=== PATIENT | male | born 1935 | race Hispanic/Latino ===

== ENCOUNTER 2016-07-26 05:11 | Inpatient (IN) | payer MEDICARE ==
--- NOTE | 2016-07-26 05:23 | Emergency Department Report ---
<ATIF PARSON - Last Filed: 07/26/16 05:18> ED Shortness of Breath HPI - General Chief Complaint: Dyspnea/Respdistress Stated Complaint: DIFFICULTY BREATHING Time Seen by Provider: 07/26/16 05:16 Source: patient, EMS Mode of arrival: Stretcher Limitations: No Limitations - History of Present Illness Initial Comments: 81-year-old male presents to the emergency department via EMS complaining of difficulty breathing. Symptoms began yesterday. He states symptoms upper esophagus and worse throughout the night. Patient denies pain. Patient also reports new onset swelling in his feet. Patient was recently admitted to the hospital for pneumonia. There are no other complaints. Patient was placed on NIPPV by EMS prior to arrival. Patient was also given 5 mg of albuterol and 40 mg of IV Lasix. MD Complaint: shortness of breath -: Gradual, days(s) (1) Severity: moderate Consistency: constant Improves With: oxygen, upright position Worsens With: lying flat Known History Of: COPD, congestive heart failure, recurrent pnemonia Associated Symptoms: other (pedal edema) Treatments Prior to Arrival: oxygen, NIPPV, diuretics - Related Data Home Medications Medication Instructions Recorded Confirmed Last Taken Cyanocobalamin [Vitamin B-12] 1,000 mcg IM QMONTH 04/05/15 07/26/16 07/25/16 Furosemide [Lasix TAB] 40 mg PO QDAY 04/05/15 07/26/16 07/25/16 Ipratropium (Nf) [Atrovent HFA 2 puff IH Q6HR PRN 04/05/15 07/26/16 07/25/16 17MCG/PUFF] Levothyroxine [Synthroid] 88 mcg PO QAM 04/05/15 07/26/16 07/25/16 Nitroglycerin [Nitrostat] 0.4 mg SL Q5M PRN 04/05/15 07/26/16 07/25/16 Potassium Chloride [K-Dur] 10 meq PO QDAY 04/05/15 07/26/16 07/25/16 Vitamin E 1,000 unit PO DAILY 04/05/15 07/26/16 07/25/16 Tamsulosin [Flomax] 1 mg PO DAILY 07/03/16 07/26/16 07/25/16 Previous Rx's Medication Instructions Recorded Last Taken Type ALBUTEROL NEB's [Proventil 0.083% 2.5 mg IH Q4H PRN 30 Days 07/15/16 07/25/16 Rx NEBS] Apixaban [Eliquis] 5 mg PO Q12HR #60 tablet 07/15/16 07/25/16 Rx Aspirin EC [Aspirin Enteric Coated 81 mg PO QDAY #30 tablet 07/15/16 07/25/16 Rx TAB] Atenolol [Tenormin] 25 mg PO QDAY #30 tablet 07/15/16 07/25/16 Rx AtorvaSTATin [Lipitor] 40 mg PO QHS #30 tablet 07/15/16 07/25/16 Rx Budesoni/Formotero 160-4.5(Nf) 1 puff IH BID 30 Days 07/15/16 07/25/16 Rx [Symbicort 160-4.5 (Nf)] Ipratropium/Albuterol Sulfate 1 ampul IH Q6HRT 30 Days 07/15/16 07/25/16 Rx [Duoneb 0.5 mg-3 mg/3 ml Soln] Levofloxacin [Levaquin TAB] 500 mg PO Q24HR #5 tablet 07/15/16 07/25/16 Rx Lisinopril [Zestril TAB] 2.5 mg PO QDAY #30 tablet 07/15/16 07/25/16 Rx guaiFENesin ER [Mucinex ER] 600 mg PO BID #20 tablet 07/15/16 07/25/16 Rx predniSONE [Deltasone] 10 mg PO .TAPER #48 tab 07/15/16 07/25/16 Rx Allergies Allergy/AdvReac Type Severity Reaction Status Date / Time carvedilol [From Coreg] Allergy Unknown Verified 07/03/16 11:12 ED Review of Systems ROS: Stated complaint: DIFFICULTY BREATHING Other details as noted in HPI Comment: All other systems reviewed and negative Respiratory: shortness of breath Cardiovascular: edema ED Past Medical Hx - Past Medical History Previous Medical History?: Yes Hx Hypertension: Yes Hx Heart Attack/AMI: Yes (x4) Hx Congestive Heart Failure: Yes Hx Arthritis: Yes Hx Kidney Stones: Yes Hx Asthma: Yes Hx COPD: Yes - Surgical History Past Surgical History?: Yes Hx Open Heart Surgery: Yes Hx Pacemaker: Yes (AIDC) - Family History Family history: no significant - Social History Smoking Status: Former Smoker Substance Use Type: None - Medications Home Medications: Home Medications Medication Instructions Recorded Confirmed Last Taken Type Cyanocobalamin [Vitamin B-12] 1,000 mcg IM QMONTH 04/05/15 07/26/16 07/25/16 History Furosemide [Lasix TAB] 40 mg PO QDAY 04/05/15 07/26/16 07/25/16 History Ipratropium (Nf) [Atrovent HFA 2 puff IH Q6HR PRN 04/05/15 07/26/16 07/25/16 History 17MCG/PUFF] Levothyroxine [Synthroid] 88 mcg PO QAM 04/05/15 07/26/16 07/25/16 History Nitroglycerin [Nitrostat] 0.4 mg SL Q5M PRN 04/05/15 07/26/16 07/25/16 History Potassium Chloride [K-Dur] 10 meq PO QDAY 04/05/15 07/26/16 07/25/16 History Vitamin E 1,000 unit PO DAILY 04/05/15 07/26/16 07/25/16 History Tamsulosin [Flomax] 1 mg PO DAILY 07/03/16 07/26/16 07/25/16 History ALBUTEROL NEB's [Proventil 0.083% 2.5 mg IH Q4H PRN 30 Days 07/15/16 07/26/16 Rx NEBS] Apixaban [Eliquis] 5 mg PO Q12HR #60 tablet 07/15/16 07/26/16 07/25/16 Rx Aspirin EC [Aspirin Enteric Coated 81 mg PO QDAY #30 tablet 07/15/16 07/26/16 Rx TAB] Atenolol [Tenormin] 25 mg PO QDAY #30 tablet 07/15/16 07/26/16 07/25/16 Rx AtorvaSTATin [Lipitor] 40 mg PO QHS #30 tablet 07/15/16 07/26/16 07/25/16 Rx Budesoni/Formotero 160-4.5(Nf) 1 puff IH BID 30 Days 07/15/16 07/26/16 07/25/16 Rx [Symbicort 160-4.5 (Nf)] Ipratropium/Albuterol Sulfate 1 ampul IH Q6HRT 30 Days 07/15/16 07/26/16 Rx [Duoneb 0.5 mg-3 mg/3 ml Soln] Levofloxacin [Levaquin TAB] 500 mg PO Q24HR #5 tablet 07/15/16 07/26/16 Rx Lisinopril [Zestril TAB] 2.5 mg PO QDAY #30 tablet 07/15/16 07/26/16 07/25/16 Rx guaiFENesin ER [Mucinex ER] 600 mg PO BID #20 tablet 07/15/16 07/26/16 07/25/16 Rx predniSONE [Deltasone] 10 mg PO .TAPER #48 tab 07/15/16 07/26/16 07/25/16 Rx ED Physical Exam - General Limitations: Physical Limitation General appearance: alert, in distress (mild respiratory distress) - Head Head exam: Present: atraumatic, normocephalic - Eye Eye exam: Present: normal appearance, PERRL, EOMI - ENT ENT exam: Present: normal exam, normal orophraynx, mucous membranes moist - Neck Neck exam: Present: normal inspection, full ROM. Absent: tenderness - Respiratory Respiratory exam: Present: respiratory distress (mild tachypnea), rales ( bilateral posterior bases) - Cardiovascular Cardiovascular Exam: Present: normal rhythm, tachycardia, normal heart sounds - GI/Abdominal GI/Abdominal exam: Present: soft, normal bowel sounds. Absent: distended, tenderness - Extremities Exam Extremities exam: Present: normal inspection, full ROM, pedal edema - Back Exam Back exam: Present: normal inspection, full ROM. Absent: tenderness - Neurological Exam Neurological exam: Present: alert, oriented X3. Absent: motor sensory deficit - Skin Skin exam: Present: warm, dry, intact ED Course Vital Signs 07/26/16 07/26/16 07/26/16 05:12 05:25 05:33 Temperature 97.6 F Pulse Rate 110 H Pulse Rate [ Bilateral Throughout] Respiratory 33 H 34 H 20 Rate Respiratory Rate [Bilateral Throughout] Blood Pressure 124/72 Blood Pressure 124/72 [Right] O2 Sat by Pulse 94 92 96 Oximetry 07/26/16 07/26/16 07/26/16 05:36 05:37 06:01 Temperature Pulse Rate 83 108 H 76 Pulse Rate [ Bilateral Throughout] Respiratory 22 14 Rate Respiratory Rate [Bilateral Throughout] Blood Pressure 113/71 104/53 Blood Pressure [Right] O2 Sat by Pulse 98 97 Oximetry 07/26/16 07/26/16 07/26/16 06:42 06:45 07:00 Temperature Pulse Rate 80 85 Pulse Rate [ 80 Bilateral Throughout] Respiratory 20 20 Rate Respiratory 20 Rate [Bilateral Throughout] Blood Pressure 103/60 105/69 Blood Pressure [Right] O2 Sat by Pulse 100 98 Oximetry 07/26/16 08:00 Temperature Pulse Rate 78 Pulse Rate [ Bilateral Throughout] Respiratory 26 H Rate Respiratory Rate [Bilateral Throughout] Blood Pressure 99/66 Blood Pressure [Right] O2 Sat by Pulse 99 Oximetry ED Medical Decision Making - EKG Data -: EKG Interpreted by Me EKG shows normal: sinus rhythm, ST-T waves Rate: tachycardia - EKG Data When compared to previous EKG there are: no significant change Interpretation: unchanged when compared t (07/05/2016), other (sinus tachycardia , left axis deviation, right bundle branch block) - Differential Diagnosis CHF, pneumonia, COPD exacerbation Critical care attestation.: If time is entered above; I have spent that time in minutes in the direct care of this critically ill patient, excluding procedure time. ED Disposition Clinical Impression: COPD exacerbation CHF (congestive heart failure) Qualifiers: Congestive heart failure type: combined Congestive heart failure chronicity: acute on chronic Qualified Code(s): I50.43 - Acute on chronic combined systolic (congestive) and diastolic (congestive) heart failure Pneumonia Qualifiers: Pneumonia type: due to unspecified organism Laterality: bilateral Lung location : lower lobe of lung Qualified Code(s): J18.9 - Pneumonia, unspecified organism Hypercapnic respiratory failure Qualifiers: Chronicity: acute on chronic Qualified Code(s): J96.22 - Acute and chronic respiratory failure with hypercapnia Disposition: OP ADMITTED IP TO THIS HOSP Condition: Stable Instructions: Chronic Obstructive Pulmonary Disease (ED), Bacterial Pneumonia ( ED) <DREW JUAREZ - Last Filed: 07/26/16 09:19> ED Shortness of Breath HPI - History of Present Illness Initial Comments: The patient is on continuous home O2 but not CPAP. Reports improvement from therapy thus far. Discharge instructions indicate that he was treated for bronchitis. His previous x-ray reports are consistent with pneumonia. He was treated with high-dose steroids in the ICU. On discharge she declined rehabilitation placement. He reports to me no recent fever or chills. However , his x-ray does appear to show worsening lower lobe infiltrates. MD Complaint: shortness of breath -: days(s) Severity: moderate, severe Quality: throbbing Known History Of: COPD, congestive heart failure (temperature was not measured at home) ED Review of Systems Comment: All other systems reviewed and negative ED Past Medical Hx - Past Medical History Hx COPD: Yes Additional medical history: AICD. EF of 15. - Social History Substance Use Type: None ED Physical Exam - General Limitations: Other (noninvasive ventilation) General appearance: alert, in no apparent distress - Head Head exam: Present: atraumatic, normocephalic - Eye Eye exam: Present: normal appearance. Absent: scleral icterus - ENT ENT exam: Present: mucous membranes moist - Neck Neck exam: Present: normal inspection - Respiratory Respiratory exam: Present: wheezes. Absent: respiratory distress, accessory muscle use - Cardiovascular Cardiovascular Exam: Present: regular rate, normal rhythm. Absent: systolic murmur, diastolic murmur, rubs, gallop - GI/Abdominal GI/Abdominal exam: Present: soft, normal bowel sounds. Absent: distended, tenderness, guarding, rebound - Rectal Rectal exam: Present: deferred - Extremities Exam Extremities exam: Present: pedal edema (mild) - Back Exam Back exam: Present: normal inspection - Neurological Exam Neurological exam: Present: alert, oriented X3, CN II-XII intact. Absent: motor sensory deficit - Psychiatric Psychiatric exam: Present: normal affect, normal mood - Skin Skin exam: Present: warm, dry, intact, normal color. Absent: rash ED Course - Reevaluation(s) Reevaluation #1: I am going to add antibiotics steroids and 2 additional meds. The goal is to take the patient off BiPAP. We'll see if his ABG is permissive or not. 07/26/16 06:36 Reevaluation #2: This patient has been admitted by Dr. Zhu. The nurse placed the patient on 2 L. I noted that the respiratory therapist obtained a venous blood gas that was consistent with hypercapnic respiratory failure. I instructed the respiratory therapist to repeat the blood gas to verify that the patient is okay with out IPAP. 07/26/16 09:15 ED Medical Decision Making - Lab Data Result diagrams: 07/26/16 05:29 07/26/16 05:29 Laboratory Results - last 24 hr 07/26/16 07/26/16 05:29 05:29 WBC 5.8 RBC 3.37 L Hgb 10.9 L Hct 33.1 L MCV 98 H MCH 32 MCHC 33 RDW 17.0 H Plt Count 138 L Lymph % (Auto) 11.1 L Crenshaw % (Auto) 6.6 Eos % (Auto) 0.8 Baso % (Auto) 0.5 Lymph # 0.6 L Crenshaw # 0.4 Eos # 0.0 Baso # 0.0 Seg Neutrophils % 81.0 H Seg Neutrophils # 4.7 Sodium 144 Potassium 4.6 Chloride 99.8 Carbon Dioxide 32 H Anion Gap 17 BUN 26 H Creatinine 1.0 Estimated GFR > 60 BUN/Creatinine Ratio 26.00 Glucose 129 H Calcium 8.5 Magnesium 2.1 Total Bilirubin 0.6 AST 29 ALT 26 Alkaline Phosphatase 50 Troponin T < 0.010 NT-Pro-B Natriuret Pep 87781 H Total Protein 5.8 L Albumin 3.4 L Albumin/Globulin Ratio 1.4 - EKG Data -: EKG Interpreted by Me Rate: tachycardia (sinus tachycardia) - EKG Data When compared to previous EKG there are: no significant change Few PVCs are noted. Right bundle-branch block. Left anterior circular block. Old inferior wall zone. No evidence of acute ischemia 07/26/16 06:38 07/26/16 06:39 - Radiology Data interpreted by me: Chest x-ray shows what appears to be more infiltrate in the right lower lobe can 't exclude left pleural effusion/left lower lobe infiltrate as well Critical Care Time: Yes Critical care time in (mins) excluding proc time.: 45 ED Disposition Is pt being admited?: Yes Does the pt Need Aspirin: Yes Time of Disposition: 09:19
[2016-07-26 05:42] LABS: Basophils % (Auto) 0.5 % (0.0-1.8); Eosinophils % (Auto) 0.8 % (0.0-4.3); Hematocrit 33.1 % (35.5-45.6); Hemoglobin 10.9 gm/dl (11.8-15.2); Mean Corpuscular HGB Conc 33 % (32-34); Mean Corpuscular Hemoglobin 32 pg (28-32); Mean Corpuscular Volume 98 fl (84-94); Platelet Count 138 K/mm3 (140-440); Red Blood Count 3.37 M/mm3 (3.65-5.03); White Blood Count 5.8 K/mm3 (4.5-11.0)
[2016-07-26 06:07] LABS: Alanine Aminotransferase 26 units/L (7-56); Albumin 3.4 g/dL (3.9-5); Albumin/Globulin Ratio 1.4 %; Alkaline Phosphatase 50 units/L (35-129); Anion Gap 17 mmol/L; Bilirubin,Total 0.6 mg/dL (0.1-1.2); Blood Urea Nitrogen 26 mg/dL (9-20); Calcium 8.5 mg/dL (8.4-10.2); Carbon Dioxide 32 mmol/L (22-30); Chloride 99.8 mmol/L (98-107); Glucose 129 mg/dL (75-100); Magnesium 2.1 mg/dL (1.7-2.3); Potassium 4.6 mmol/L (3.6-5.0); Sodium 144 mmol/L (137-145); Total Protein 5.8 g/dL (6.3-8.2)
[2016-07-26] MEDS ORDERED: DUONEB 0.5 MG-3 MG/3 ML SOLN IH ONE ×2 (06:22→14:26)
[2016-07-26] MEDS ORDERED: ZOSYN/NS 3.375GM/50ML 50 ML IV ONE (06:24)
[2016-07-26] MEDS ORDERED: LEVAQUIN 750MG/150ML 150 ML IV ONE (06:24)
[2016-07-26] MEDS ORDERED: VANCOMYCIN PHARMACY TO DOSE IV SCH (07:00)
[2016-07-26] MEDS: VANCOMYCIN VIAL 1,250 MG in NACL 0.9% 250ML 250 ML IV SCH ×2 (09:10→21:57)
[2016-07-26] MEDS ORDERED: BABY ASPIRIN PO ONE (09:19)
--- NOTE | 2016-07-26 09:48 | XRay Report ---
AP CHEST :07/26/16 05:11:00 CLINICAL: Dyspnea. COMPARISON:07/13/16 FINDINGS: Stable cardiomegaly with pacer leads in heart. Median sternotomy wires. Normal pulmonary vessels. Mild bibasal opacities are unchanged. No tubes or lines. IMPRESSION: No change. Probably chronic bibasal interstitial changes.
[2016-07-26 10:11] LABS: ISTAT Base Excess 16; ISTAT HCO3 41.4; ISTAT PCO2 68.4 (35-45); ISTAT PO2 24 (80-105); ISTAT SO2 38; ISTAT TCO2 43
--- NOTE | 2016-07-26 10:49 | Event Note ---
Date: 07/26/16 See H/p in reports
[2016-07-26] MEDS ORDERED: PROVENTIL IH PRN (11:27)
[2016-07-26] MEDS ORDERED: NON-FORMULARY (Ipratropium (Nf) 2 PUFF) IH PRN (11:27)
[2016-07-26] MEDS ORDERED: NON-FORMULARY (Budesoni/Formotero 160-4.5(Nf) 1 PUFF) IH SCH (11:30)
[2016-07-26] MEDS ORDERED: ZOFRAN IV PRN (11:53)
[2016-07-26] MEDS ORDERED: TYLENOL PO PRN (11:53)
[2016-07-26] MEDS ORDERED: DILAUDID IV PRN (11:53)
[2016-07-26] MEDS ORDERED: DULCOLAX PR PRN (11:53)
[2016-07-26] MEDS ORDERED: MILK OF MAGNESIA PO PRN (11:53)
[2016-07-26] MEDS ORDERED: LOVENOX SUB-Q SCH (12:00)
[2016-07-26] MEDS ORDERED: DELTASONE PO SCH (12:00)
[2016-07-26] MEDS ORDERED: PERCOCET 5/325 PO PRN (12:02)
[2016-07-26] MEDS ORDERED: DUONEB 0.5 MG-3 MG/3 ML SOLN IH PRN (12:02)
--- NOTE | 2016-07-26 12:53 | Consultation ---
History of Present Illness Consult date: 07/26/16 Consult reason: shortness of breath History of present illness: 81 year old male presenting with shortness of breath patient is a poor historian denies any chest pain palpitations.Patient was recently at length the [facility] for similar symptoms. Past History Past Medical History: COPD, hypertension, hypothyroidism Past Surgical History: No surgical history Social history: , smoking Family history: no significant family history Medications and Allergies Allergies Allergy/AdvReac Type Severity Reaction Status Date / Time carvedilol [From Coreg] Allergy Unknown Verified 07/03/16 11:12 Home Medications Medication Instructions Recorded Confirmed Last Taken Type Cyanocobalamin [Vitamin B-12] 1,000 mcg IM QMONTH 04/05/15 07/26/16 07/25/16 History Furosemide [Lasix TAB] 40 mg PO QDAY 04/05/15 07/26/16 07/25/16 History Ipratropium (Nf) [Atrovent HFA 2 puff IH Q6HR PRN 04/05/15 07/26/16 07/25/16 History 17MCG/PUFF] Levothyroxine [Synthroid] 88 mcg PO QAM 04/05/15 07/26/16 07/25/16 History Nitroglycerin [Nitrostat] 0.4 mg SL Q5M PRN 04/05/15 07/26/16 07/25/16 History Potassium Chloride [K-Dur] 10 meq PO QDAY 04/05/15 07/26/16 07/25/16 History Vitamin E 1,000 unit PO DAILY 04/05/15 07/26/16 07/25/16 History Tamsulosin [Flomax] 1 mg PO DAILY 07/03/16 07/26/16 07/25/16 History ALBUTEROL NEB's [Proventil 0.083% 2.5 mg IH Q4H PRN 30 Days 07/15/16 07/26/16 Rx NEBS] Apixaban [Eliquis] 5 mg PO Q12HR #60 tablet 07/15/16 07/26/16 07/25/16 Rx Aspirin EC [Aspirin Enteric Coated 81 mg PO QDAY #30 tablet 07/15/16 07/26/16 Rx TAB] Atenolol [Tenormin] 25 mg PO QDAY #30 tablet 07/15/16 07/26/16 07/25/16 Rx AtorvaSTATin [Lipitor] 40 mg PO QHS #30 tablet 07/15/16 07/26/16 07/25/16 Rx Budesoni/Formotero 160-4.5(Nf) 1 puff IH BID 30 Days 07/15/16 07/26/16 07/25/16 Rx [Symbicort 160-4.5 (Nf)] Ipratropium/Albuterol Sulfate 1 ampul IH Q6HRT 30 Days 07/15/16 07/26/16 Rx [Duoneb 0.5 mg-3 mg/3 ml Soln] Levofloxacin [Levaquin TAB] 500 mg PO Q24HR #5 tablet 07/15/16 07/26/16 Rx Lisinopril [Zestril TAB] 2.5 mg PO QDAY #30 tablet 07/15/16 07/26/16 07/25/16 Rx guaiFENesin ER [Mucinex ER] 600 mg PO BID #20 tablet 07/15/16 07/26/16 07/25/16 Rx predniSONE [Deltasone] 10 mg PO .TAPER #48 tab 07/15/16 07/26/16 07/25/16 Rx Active Meds: Active Medications Acetaminophen (Tylenol) 650 mg PO Q4H PRN PRN Reason: Pain MILD(1-3)/Fever >100.5/CAMPOS Albuterol (Proventil) 2.5 mg IH Q4H PRN PRN Reason: Shortness Of Breath Albuterol/Ipratropium (Duoneb 0.5 Mg-3 Mg/3 Ml Soln) 1 ampul IH Q6HRT BRENDA Albuterol/Ipratropium (Duoneb 0.5 Mg-3 Mg/3 Ml Soln) 1 ampul IH Q6HRT BRENDA Apixaban (Eliquis) 5 mg PO Q12HR BRENDA Arformoterol Tartrate (Brovana Nebu) 15 mcg IH Q12HRT BRENDA Aspirin (Halfprin Ec) 81 mg PO QDAY BRENDA Atenolol (Tenormin) 25 mg PO QDAY BRENDA Atorvastatin Calcium (Lipitor) 40 mg PO QHS BRENDA Bisacodyl (Dulcolax) 10 mg LA QDAY PRN PRN Reason: Constipation unrelieved by [facility] Budesonide (Pulmicort) 0.5 mg IH Q12HRT [facility] Furosemide (Lasix) 40 mg PO QDAY [facility] Guaifenesin (Mucinex Er) 600 mg PO BID [facility] Hydromorphone HCl (Dilaudid) 0.5 mg IV Q3H PRN PRN Reason: Pain , Severe (7-10) Vancomycin HCl 1,250 mg/ (Sodium Chloride) 250 mls @ 166.667 mls/hr IV Q12H [facility] Last Admin: 07/26/16 09:10 Dose: 166.667 mls/hr Levofloxacin/Dextrose (Levaquin 750mg/150ml) 150 mls @ 100 mls/hr IV Q24HR [facility] PRN Reason: Protocol Levothyroxine Sodium (Synthroid) 88 mcg PO DAILY@0600 [facility] Lisinopril (Zestril) 2.5 mg PO QDAY [facility] Magnesium Hydroxide (Milk Of Magnesia) 30 ml PO Q4H PRN PRN Reason: Constipation Methylprednisolone Sodium Succinate (Solu-Medrol) 80 mg IV Q8HR [facility] Ondansetron HCl (Zofran) 4 mg IV Q8H PRN PRN Reason: N/V unrelieved by Reglan Oxycodone/Acetaminophen (Percocet 5/325) 1 tab PO Q6H PRN PRN Reason: Pain, Moderate (4-6) Potassium Chloride (K-Dur) 10 meq PO QDAY [facility] Tamsulosin HCl (Flomax) 0.4 mg PO DAILY [facility] Vancomycin HCl (Vancomycin Pharmacy To Dose) 1 each IV PKCONSULT [facility] PRN Reason: Protocol Vitamin E (Vitamin E Cap) 1,000 unit PO QDAY [facility] Review of Systems Constitutional: weight loss, fatigue, weakness, malaise Ears, nose, mouth and throat: no deferred, no ear pain, no decreased hearing, no dental pain Cardiovascular: chest pain, shortness of breath, no palpitations, no syncope, no dyspnea on exertion Respiratory: shortness of breath, dyspnea on exertion Gastrointestinal: no abdominal pain, no nausea, no vomiting, no diarrhea Genitourinary Male: no dysuria, no hematuria, no flank pain Rectal: no pain, no incontinence, no bleeding Musculoskeletal: no neck stiffness, no neck pain, no hot joints Integumentary: no deferred, no rash, no pruritis, no redness Physical Examination Vital Signs Resp Pulse Ox 33 H 94 07/26/16 05:12 07/26/16 05:12 General appearance: no acute distress, well-nourished HEENT: Positive: PERRL, Mucus Membranes Moist Neck: Positive: neck supple, trachea midline. Negative: JVD/HJR Cardiac: Positive: S1/S2, S3, PMI, Laterally Displaced. Negative: Regular Rate Lungs: Positive: clear to auscultation, No Wheeze, Rales, Rhonchi Neuro: Positive: Grossly Intact. Negative: Motor Function Intact, No Lateralizing Findings Abdomen: Negative: Unremarkable, Active Bowel Sounds Extremities: Absent: edema Results 07/27/16 08:38 07/27/16 08:38 Assessment and Plan 1. Community-acquired lobar pneumonia 2. Chronic obstructive pulmonary disease 3. Congestive heart failure 4. Essential hypertension Plan. Obtain records from [facility] continued IV antibiotics. We will follow
[2016-07-26] MEDS ORDERED: LASIX ONE (12:54)
[2016-07-26] MEDS: LASIX PO SCH (13:50)
[2016-07-26] MEDS ORDERED: DUONEB 0.5 MG-3 MG/3 ML SOLN IH SCH (14:00)
[2016-07-26] MEDS ORDERED: K-DUR PO ONE (14:27)
[2016-07-26] MEDS: DUONEB 0.5 MG-3 MG/3 ML SOLN IH SCH ×2 (14:36→20:32)
[2016-07-26] MEDS: K-DUR PO SCH (14:36)
--- NOTE | 2016-07-26 14:47 | Consultation ---
History of Present Illness Consult date: 07/26/16 Reason for consult: dyspnea, COPD History of present illness: 81-year-old male presents to the emergency department via EMS complaining of difficulty breathing. Symptoms began yesterday. He states symptoms upper esophagus and worse throughout the night. Patient denies pain. Patient also reports new onset swelling in his feet. Patient was recently admitted to the hospital for pneumonia. There are no other complaints. Patient was placed on NIPPV by EMS prior to arrival. Patient was also given 5 mg of albuterol and 40 mg of IV Lasix.Patient has history of COPD,CHF nd recurrent pneumonia.Patient Allergic to Carvedelol. Past History Past Medical History: COPD, hypertension, hypothyroidism Medications and Allergies Allergies Allergy/AdvReac Type Severity Reaction Status Date / Time carvedilol [From Coreg] Allergy Unknown Verified 07/03/16 11:12 Home Medications Medication Instructions Recorded Confirmed Last Taken Type Cyanocobalamin [Vitamin B-12] 1,000 mcg IM QMONTH 04/05/15 07/26/16 07/25/16 History Furosemide [Lasix TAB] 40 mg PO QDAY 04/05/15 07/26/16 07/25/16 History Ipratropium (Nf) [Atrovent HFA 2 puff IH Q6HR PRN 04/05/15 07/26/16 07/25/16 History 17MCG/PUFF] Levothyroxine [Synthroid] 88 mcg PO QAM 04/05/15 07/26/16 07/25/16 History Nitroglycerin [Nitrostat] 0.4 mg SL Q5M PRN 04/05/15 07/26/16 07/25/16 History Potassium Chloride [K-Dur] 10 meq PO QDAY 04/05/15 07/26/16 07/25/16 History Vitamin E 1,000 unit PO DAILY 04/05/15 07/26/16 07/25/16 History Tamsulosin [Flomax] 1 mg PO DAILY 07/03/16 07/26/16 07/25/16 History ALBUTEROL NEB's [Proventil 0.083% 2.5 mg IH Q4H PRN 30 Days 07/15/16 07/26/16 Rx NEBS] Apixaban [Eliquis] 5 mg PO Q12HR #60 tablet 07/15/16 07/26/16 07/25/16 Rx Aspirin EC [Aspirin Enteric Coated 81 mg PO QDAY #30 tablet 07/15/16 07/26/16 Rx TAB] Atenolol [Tenormin] 25 mg PO QDAY #30 tablet 07/15/16 07/26/16 07/25/16 Rx AtorvaSTATin [Lipitor] 40 mg PO QHS #30 tablet 07/15/16 07/26/16 07/25/16 Rx Budesoni/Formotero 160-4.5(Nf) 1 puff IH BID 30 Days 07/15/16 07/26/16 07/25/16 Rx [Symbicort 160-4.5 (Nf)] Ipratropium/Albuterol Sulfate 1 ampul IH Q6HRT 30 Days 07/15/16 07/26/16 Rx [Duoneb 0.5 mg-3 mg/3 ml Soln] Levofloxacin [Levaquin TAB] 500 mg PO Q24HR #5 tablet 07/15/16 07/26/16 Rx Lisinopril [Zestril TAB] 2.5 mg PO QDAY #30 tablet 07/15/16 07/26/16 07/25/16 Rx guaiFENesin ER [Mucinex ER] 600 mg PO BID #20 tablet 07/15/16 07/26/16 07/25/16 Rx predniSONE [Deltasone] 10 mg PO .TAPER #48 tab 07/15/16 07/26/16 07/25/16 Rx Active Meds: Active Medications Acetaminophen (Tylenol) 650 mg PO Q4H PRN PRN Reason: Pain MILD(1-3)/Fever >100.5/CAMPOS Albuterol (Proventil) 2.5 mg IH Q4H PRN PRN Reason: Shortness Of Breath Albuterol/Ipratropium (Duoneb 0.5 Mg-3 Mg/3 Ml Soln) 1 ampul IH Q6HRT [facility] Last Admin: 07/26/16 14:36 Dose: 1 ampul Albuterol/Ipratropium (Duoneb 0.5 Mg-3 Mg/3 Ml Soln) 1 ampul IH Q6HRT [facility] Last Admin: 07/26/16 14:36 Dose: Not Given Apixaban (Eliquis) 5 mg PO Q12HR [facility] Arformoterol Tartrate (Brovana Nebu) 15 mcg IH Q12HRT [facility] Aspirin (Halfprin Ec) 81 mg PO QDAY [facility] Atenolol (Tenormin) 25 mg PO QDAY [facility] Atorvastatin Calcium (Lipitor) 40 mg PO QHS [facility] Bisacodyl (Dulcolax) 10 mg MS QDAY PRN PRN Reason: Constipation [place]rel[place] [facility] Budesonide (Pulmicort) 0.5 mg IH Q12HRT [facility] Furosemide (Lasix) 40 mg PO QDAY [facility] Last Admin: 07/26/16 13:50 Dose: 40 mg Guaifenesin (Mucinex Er) 600 mg PO BID [facility] Hydromorphone HCl (Dilaudid) 0.5 mg IV Q3H PRN PRN Reason: Pain , Severe (7-10) Vancomycin HCl 1,250 mg/ (Sodium Chloride) 250 mls @ 166.667 mls/hr IV Q12H [facility] Last Admin: 07/26/16 09:10 Dose: 166.667 mls/hr Levofloxacin/Dextrose (Levaquin 750mg/150ml) 150 mls @ 100 mls/hr IV Q24HR [facility] PRN Reason: Protocol Levothyroxine Sodium (Synthroid) 88 mcg PO DAILY@0600 [facility] Lisinopril (Zestril) 2.5 mg PO QDAY [facility] Magnesium Hydroxide (Milk Of Magnesia) 30 ml PO Q4H PRN PRN Reason: Constipation Methylprednisolone Sodium Succinate (Solu-Medrol) 80 mg IV Q8HR [facility] Last Admin: 07/26/16 14:36 Dose: 80 mg Ondansetron HCl (Zofran) 4 mg IV Q8H PRN PRN Reason: N/V unrelieved by Reglan Oxycodone/Acetaminophen (Percocet 5/325) 1 tab PO Q6H PRN PRN Reason: Pain, Moderate (4-6) Potassium Chloride (K-Dur) 10 meq PO QDAY [facility] Last Admin: 07/26/16 14:36 Dose: 10 meq Tamsulosin HCl (Flomax) 0.4 mg PO DAILY [facility] Vancomycin HCl (Vancomycin Pharmacy To Dose) 1 each IV PKCONSULT [facility] PRN Reason: Protocol Vitamin E (Vitamin E Cap) 1,000 unit PO QDAY [facility] Review of Systems All systems: negative Physical Examination Vital signs: Vital Signs Resp Pulse Ox 33 H 94 07/26/16 05:12 07/26/16 05:12 General appearance: no acute distress Eyes: non-icteric ENT: oropharynx moist Neck: supple, no JVD Results - Laboratory Findings CBC and BMP: 07/27/16 08:38 07/27/16 08:38 ABG POC ABG pH 7.390 (7.35-7.45) 07/26/16 08:18 POC ABG pCO2 68.4 (35-45) H 07/26/16 08:18 POC ABG pO2 24 (80-105) L 07/26/16 08:18 POC ABG HCO3 41.4 07/26/16 08:18 POC ABG Total CO2 43 07/26/16 08:18 POC ABG O2 Sat 38 07/26/16 08:18 - Diagnostic Findings Chest x-ray: report reviewed (Chronic bibasilar interstitial changes.), image reviewed Assessment and Plan 81-year-old male presents to the emergency department via EMS complaining of difficulty breathing. Symptoms began yesterday. He states symptoms upper esophagus and worse throughout the night. Patient denies pain. Patient also reports new onset swelling in his feet. Patient was recently admitted to the hospital for pneumonia. There are no other complaints. Patient was placed on NIPPV by EMS prior to arrival. Patient was also given 5 mg of albuterol and 40 mg of IV Lasix.Patient has history of COPD,CHF nd recurrent pneumonia.Patient Allergic to Carvedelol. - Patient Problems (1) CHF (congestive heart failure) Current Visit: Yes Status: Acute Qualifiers: Congestive heart failure type: combined Congestive heart failure chronicity : acute on chronic Qualified Code(s): I50.43 - Acute on chronic combined systolic (congestive) and diastolic (congestive) heart failure Plan to address problem: Patient received lasis. Mangement as per primary care and cardiology. (2) COPD exacerbation Current Visit: Yes Status: Acute Plan to address problem: Albuterol/atrovent aerosol treatments. Continue Solumedral. O2 supplementation. (3) Acute respiratory failure with hypoxia and hypercapnia Diagnosis Date: 07/07/16 Current Visit: No Status: Acute Plan to address problem: BIPAP 20/10, Rate 20, FIO2 40%. Continue APIXAban Recommend protonix. (4) Pneumonia Current Visit: Yes Status: Acute Qualifiers: Pneumonia type: due to unspecified organism Laterality: bilateral Lung location: lower lobe of lung Qualified Code(s): J18.9 - Pneumonia, unspecified organism Plan to address problem: Patient is on Levaquine and vancomycin. (5) Hypothyroidism Current Visit: No Status: Chronic Qualifiers: Hypothyroidism type: unspecified Qualified Code(s): E03.9 - Hypothyroidism , unspecified Plan to address problem: Patient is on Levothyroxine. Management as per primary care.
[2016-07-26] MEDS: TENORMIN PO SCH (15:02)
[2016-07-26] MEDS: ELIQUIS PO SCH ×2 (15:03→22:04)
[2016-07-26] MEDS: HALFPRIN EC PO SCH (15:03)
[2016-07-26] MEDS: MUCINEX ER PO SCH ×2 (15:03→21:58)
[2016-07-26] MEDS: ZESTRIL PO SCH (15:03)
[2016-07-26] MEDS: PULMICORT IH SCH (20:32)
[2016-07-26] MEDS: BROVANA NEBU IH SCH (20:36)
--- NOTE | 2016-07-27 00:44 | Admit Criteria Form ---
Admission Criteria Documentation: COPD Clinical Indications for Admission to Inpatient Care (Place 'X' for any and all applicable criteria): Admission is indicated for ANY ONE of the following (1)(2)(3): [X ]I. Acute exacerbation by high-risk comorbidity (e.g., pneumonia, dysrhythmia, heart failure, pleural effusion, pneumothorax) or severe underlying COPD (e.g., steroid dependent) [ ]II. Inpatient admission required rather than observation care (see Chronic Obstructive Pulmonary Disease: Observation Care) because of ANY ONE of the following: [ ]a) New or pre-existing signs or symptoms of COPD (eg, dyspnea or Tachypnea at rest or with minimal activity) that persist despite outpatient and observation care treatment [ ]b) New-onset hypoxemia (room air SaO2 less than 90%, PO2 less than 60 mm Hg (8.0 kPa)) that persists despite outpatient and observation care treatment [ ]c) Worsening of pre-existing hypoxemia (eg, new or increased requirement for supplemental oxygen to maintain oxygenation at baseline level) that persists despite outpatient and observation care treatment, with oxygen treatment needs performable only in acute inpatient setting [ ]d) Hypercarbia (PCO2 greater than 40 mm Hg (5.3 kPa))-induced respiratory acidosis (pH less than 7.35) that persists despite outpatient and observation care treatment [ ]e) Supplemental oxygen or respiratory treatments for over 24 hours that are performable only in acute inpatient setting [ ]f) Chest tube placement with active evacuation (e.g., suction, drainage) (5) [ ]g) Other condition, treatment or monitoring requiring inpatient admission [ ]III. Planned invasive surgical or diagnostic procedures requiring acute- care hospitalization [ ]IV. Acute respiratory failure (e.g., uncompensated hypercarbia, severe hypoxemia) [ ]V. Severe comorbid condition (e.g., severe steroid myopathy, acute vertebral fracture) that has acutely worsened pulmonary function [ ]. Confusion state, lethargy, obtundation, stupor or coma Extended stay beyond goal length of stay may be needed for (31)(32): [ ]a ) Respiratory Failure. [ ]b) Severe or persisting hypoxemia or hypercarbia [ ]c) Severe or persistent dyspnea [ ]d) Comorbidities (e.g. chronic heart failure, atrial fibrillation with rapid response, pneumonia) [ ]e) Malnutrition The original [facility] content created by [facility] has been revised. The portions of the content which have been revised are identified through the use of italic text or in bold, and [facility] has neither reviewed nor approved the modified material. All other unmodified content is copyright [facility]. Please see references footnoted in the original [facility] edition 2016 Admission Criteria Met: Yes
[2016-07-27] MEDS: DUONEB 0.5 MG-3 MG/3 ML SOLN IH SCH ×4 (02:04→21:07)
[2016-07-27] MEDS: PULMICORT IH SCH ×2 (07:58→21:04)
[2016-07-27] MEDS: BROVANA NEBU IH SCH ×2 (07:58→21:04)
[2016-07-27] MEDS: VANCOMYCIN VIAL 1,250 MG in NACL 0.9% 250ML 250 ML IV SCH ×2 (08:56→20:39)
[2016-07-27] MEDS: SYNTHROID PO SCH (09:00)
[2016-07-27 09:16] LABS: Hematocrit 33.1 % (35.5-45.6); Hemoglobin 10.6 gm/dl (11.8-15.2); Mean Corpuscular HGB Conc 32 % (32-34); Mean Corpuscular Hemoglobin 31 pg (28-32); Mean Corpuscular Volume 98 fl (84-94); Platelet Count 135 K/mm3 (140-440); Red Blood Count 3.39 M/mm3 (3.65-5.03); Red Cell Distribution Width 17.7 % (13.2-15.2); White Blood Count 5.3 K/mm3 (4.5-11.0)
[2016-07-27 09:32] LABS: Alanine Aminotransferase 20 units/L (7-56); Albumin 3.4 g/dL (3.9-5); Albumin/Globulin Ratio 1.5 %; Alkaline Phosphatase 45 units/L (35-129); Anion Gap 15 mmol/L; BUN/Creatinine Ratio 22.72; Bilirubin,Total 0.7 mg/dL (0.1-1.2); Blood Urea Nitrogen 25 mg/dL (9-20); Calcium 8.3 mg/dL (8.4-10.2); Carbon Dioxide 36 mmol/L (22-30); Glucose 144 mg/dL (75-100); Potassium 4.2 mmol/L (3.6-5.0); Sodium 144 mmol/L (137-145); Total Protein 5.7 g/dL (6.3-8.2)
[2016-07-27] MEDS ORDERED: VITAMIN E 1000 UNIT PO SCH (10:00)
[2016-07-27 10:12] LABS: Basophils % (Manual) 0 % (0.0-1.8); Blastocytes % (Manual) 0 %; Eosinophils % (Manual) 0 % (0.0-4.3)
[2016-07-27 10:13] LABS: Anisocytosis 1+; Elliptocytes Rare; Large Platelets Few; Platelet Estimate Consistent w Auto
[2016-07-27 10:14] LABS: Diff Status Complete; Polychromasia Few
[2016-07-27] MEDS: LEVAQUIN 750MG/150ML 150 ML IV SCH (10:22)
[2016-07-27] MEDS: ZESTRIL PO SCH (10:22)
[2016-07-27] MEDS: HALFPRIN EC PO SCH (10:22)
[2016-07-27] MEDS: FLOMAX PO SCH (10:23)
[2016-07-27] MEDS: LASIX PO SCH (10:23)
[2016-07-27] MEDS: K-DUR PO SCH (10:23)
[2016-07-27] MEDS: MUCINEX ER PO SCH ×2 (10:23→22:25)
[2016-07-27] MEDS: ELIQUIS PO SCH ×2 (10:23→22:25)
[2016-07-27] MEDS: TENORMIN PO SCH (10:23)
[2016-07-27] MEDS: VITAMIN E CAP PO SCH (10:24)
--- NOTE | 2016-07-27 11:27 | Progress Note ---
Assessment and Plan 1. Community-acquired lobar pneumonia 2. Chronic obstructive pulmonary disease 3. Congestive heart failure 4. Essential hypertension Plan. Continue present management. Obtain records from [facility] continued IV antibiotics. We will follow Subjective Date of service: 07/27/16 Interval history: No cardiac symptoms. Objective Vital Signs Temp Pulse Pulse Pulse Pulse Resp Resp 07/27/16 08:10 78 20 07/27/16 07:58 76 20 07/27/16 04:00 98.5 F 90 20 07/27/16 02:12 74 17 07/27/16 02:04 79 18 07/27/16 00:00 97.3 F L 77 20 07/26/16 23:30 54 L 18 07/26/16 20:56 07/26/16 20:51 48 L 18 07/26/16 20:35 48 L 16 07/26/16 19:00 98.2 F 88 24 07/26/16 16:31 90 24 07/26/16 16:17 85 20 07/26/16 16:00 88 22 07/26/16 15:31 82 18 07/26/16 15:08 14 07/26/16 15:01 85 23 07/26/16 15:00 86 27 H 07/26/16 14:31 86 22 07/26/16 14:00 84 29 H 07/26/16 13:31 90 31 H 07/26/16 13:00 85 25 H 07/26/16 12:31 88 28 H BP BP Pulse Ox 07/27/16 08:10 07/27/16 07:58 95 07/27/16 04:00 92/73 91 07/27/16 02:12 07/27/16 02:04 07/27/16 00:00 108/65 98 07/26/16 23:30 95 07/26/16 20:56 96 07/26/16 20:51 07/26/16 20:35 07/26/16 19:00 101/61 94 07/26/16 16:31 102/65 93 07/26/16 16:17 111/57 94 07/26/16 16:00 111/57 93 07/26/16 15:31 115/48 94 07/26/16 15:08 94 07/26/16 15:01 105/58 92 07/26/16 15:00 105/58 92 07/26/16 14:31 103/67 95 07/26/16 14:00 108/68 91 07/26/16 13:31 100/51 92 07/26/16 13:00 102/64 94 07/26/16 12:31 114/58 94 - Physical Examination HEENT: Positive: PERRL, Mucus Membranes Moist Neck: Positive: neck supple, trachea midline. Negative: JVD/HJR Cardiac: Positive: Regular Rate, S1/S2, PMI, Laterally Displaced Lungs: Positive: clear to auscultation, No Wheeze, Rales, Rhonchi Neuro: Positive: Grossly Intact. Negative: Motor Function Intact, No Lateralizing Findings Abdomen: Negative: Unremarkable, Active Bowel Sounds Extremities: Absent: edema - Labs and Meds Cardiac Enzymes 07/27/16 Range/Units 08:38 AST 21 (5-40) units/L CBC 07/27/16 Range/Units 08:38 WBC 5.3 (4.5-11.0) K/mm3 RBC 3.39 L (3.65-5.03) M/mm3 Hgb 10.6 L (11.8-15.2) gm/dl Hct 33.1 L (35.5-45.6) % Plt Count 135 L (140-440) K/mm3 Comprehensive Metabolic Panel 07/27/16 Range/Units 08:38 Sodium 144 (137-145) mmol/L Potassium 4.2 (3.6-5.0) mmol/L Chloride 97.0 L (98-107) mmol/L Carbon Dioxide 36 H (22-30) mmol/L BUN 25 H (9-20) mg/dL Creatinine 1.1 (0.8-1.5) mg/dL Glucose 144 H (75-100) mg/dL Calcium 8.3 L (8.4-10.2) mg/dL AST 21 (5-40) units/L ALT 20 (7-56) units/L Alkaline Phosphatase 45 (35-129) units/L Total Protein 5.7 L (6.3-8.2) g/dL Albumin 3.4 L (3.9-5) g/dL
--- NOTE | 2016-07-27 11:28 | History and Physical Report ---
CHIEF COMPLAINT: Increasing respiratory difficulties. HISTORY OF PRESENT ILLNESS: This is an 81-year-old male presents to the Emergency Department because of difficulty breathing and very short of breath. Denies chest pain. Also reports new swelling of his feet. The patient was placed on NIPPV by EMS prior to arrival. Also, the patient was given breathing treatment and IV Lasix. PAST MEDICAL HISTORY: Significant for COPD, asthma, kidney stones, arthritis, congestive heart failure, coronary artery disease, hypertension. CURRENT MEDICATIONS: Lasix 40 mg daily, DuoNebs, Combivent 2 puffs q.6h. p.r.n., levothyroxine 88 mcg p.o. daily, potassium 10 mEq p.o. daily, tamsulosin 1 mg p.o. daily. PAST SURGICAL HISTORY: Significant for AICD placement. FAMILY HISTORY: Significant for hypertension. SOCIAL HISTORY: Former smoker. Stopped smoking about a few years ago, pack a day. REVIEW OF SYSTEMS: CONSTITUTIONAL: No fever, no chills. HEENT: No sore throat. No postnasal drip. CARDIOVASCULAR AND RESPIRATORY: Shortness of breath and wheezing present. No chest pain. GASTROINTESTINAL: No nausea, no vomiting, no diarrhea. MUSCULOSKELETAL: No joint pains. No muscle weakness. CENTRAL NERVOUS SYSTEM: No syncope, no seizures. HEMATOLOGIC AND LYMPHATIC: No easy bruising. No lymphadenopathy. SKIN: No rashes. A 14-point review of systems done, otherwise negative. PHYSICAL EXAMINATION: GENERAL: Elderly male, cooperative during examination, in moderate to severe respiratory distress. VITAL SIGNS: Temperature 97.6, pulse is 110, respirations 33-36, blood pressure is 124/72, sats are 94%. HEENT: Unremarkable. Pupils equal and reactive. NECK: Supple, no lymphadenopathy, no thyromegaly. LUNGS: Bilateral inspiratory and expiratory rhonchi present. Decreased air entry. CARDIOVASCULAR: S1, S2 heard. No gallop, no murmur, no rub. Apical impulse in left fifth intercostal space and midclavicular line. ABDOMEN: Soft and benign. No hepatosplenomegaly. No guarding, no rigidity. Hernial orifices are normal. EXTREMITIES: Good pedal pulses. 2+ pedal edema present. CENTRAL NERVOUS SYSTEM: Alert and oriented x 4, nonfocal exam. LABORATORY DATA: Significant for white count of 5800, H and H is 10.9 and 33.1, platelet count is 138,000. ABG, significant for pH of 7.39, pCO2 of 68.4, pO2 of 24. Electrolytes are normal. Bicarbonate was 32. BUN and creatinine is 26 and 1.0. BNP is 11,092. EKG shows sinus tachycardia, nonspecific ST-T wave changes. ASSESSMENT AND PLAN: 1. Acute respiratory failure with hypercapnia and hypoxia. The patient to be continued on BiPAP, DuoNebs, IV Solu-Medrol, and IV Levaquin. 2. Congestive heart failure exacerbation. IV Lasix 40 q.12h. potassium serial, check echocardiogram. 3. Coronary artery disease. Continue Eliquis 5 mg p.o. q.12h. 4. Hyperlipidemia. Continue atorvastatin 40 mg daily. 5. Hypertension. Continue atenolol 25 mg daily. 6. Hypothyroidism. Continue levothyroxine 88 mcg p.o. daily. 7. Benign prostatic hypertrophy. Continue Flomax 0.4 daily. 8. Deep venous thrombosis prophylaxis, Lovenox 40 mg subcutaneous daily. [facility]# [id number] VSAmy/NTS
--- NOTE | 2016-07-27 19:12 | Progress Note ---
Assessment and Plan Assessment and plan: --Acute on chronic hypoxic hypercapnic respiratory failure Requiring BiPAP, continue FiO2 40% BiPAP 20/10 IV antibiotics and supportive care --Community-acquired pneumonia IV antibiotics Vanco and Levaquin, follow blood and sputum cultures Supportive care --Acute on chronic systolic congestive heart failure Continue current anti-failure medications, cardiology following --History of AICD --History of coronary artery disease status post CABG; stable on medications --Atrial fibrillation rate controlled continue beta blockers, chronic anticoagulation --COPD exacerbation with bronchitis Managed with nebulizers, IV steroids, IV antibiotics, pulmonary evaluation noted and appreciated --hypothyroidism stable on Synthroid --Hypertension well-controlled Continue current antihypertensives and when necessary medications --Dyslipidemia; stable on medications DVT prophylaxis patient is on eliquis --Full CODE STATUS Closely monitor the patient and adjust the management as needed History Interval history: Patient seen and evaluated medical records reviewed Patient feels slightly better Denies any chest pain or shortness of breath Vital signs reviewed Hospitalist Physical - Constitutional Vitals: Temp Pulse Resp BP Pulse Ox 98.5 F 74 20 92/73 95 07/27/16 04:00 07/27/16 14:05 07/27/16 14:05 07/27/16 04:00 07/27/16 07:58 General appearance: Present: no acute distress, well-nourished - EENT Eyes: Present: PERRL, EOM intact - Neck Neck: Present: supple, normal ROM - Respiratory Respiratory effort: normal Respiratory: bilateral: diminished, rales, negative: rhonchi, wheezing - Cardiovascular Rhythm: regular Heart Sounds: Present: S1 & S2 - Extremities Extremities: no ischemia, pulses intact, pulses symmetrical Peripheral Pulses: within normal limits - Abdominal General gastrointestinal: soft, non-tender, non-distended, normal bowel sounds - Integumentary Integumentary: Present: clear, warm - Psychiatric Psychiatric: appropriate mood/affect, cooperative - Neurologic Neurologic: CNII-XII intact Results - Labs CBC & Chem 7: 07/27/16 08:38 07/27/16 08:38 Labs: Laboratory Last Values WBC 5.3 K/mm3 (4.5-11.0) 07/27/16 08:38 RBC 3.39 M/mm3 (3.65-5.03) L 07/27/16 08:38 Hgb 10.6 gm/dl (11.8-15.2) L 07/27/16 08:38 Hct 33.1 % (35.5-45.6) L 07/27/16 08:38 MCV 98 fl (84-94) H 07/27/16 08:38 MCH 31 pg (28-32) 07/27/16 08:38 MCHC 32 % (32-34) 07/27/16 08:38 RDW 17.7 % (13.2-15.2) H 07/27/16 08:38 Plt Count 135 K/mm3 (140-440) L 07/27/16 08:38 Lymph % (Auto) 11.1 % (13.4-35.0) L 07/26/16 05:29 [place] % (Auto) 6.6 % (0.0-7.3) 07/26/16 05:29 Eos % (Auto) 0.8 % (0.0-4.3) 07/26/16 05:29 Baso % (Auto) 0.5 % (0.0-1.8) 07/26/16 05:29 Lymph # 0.6 K/mm3 (1.2-5.4) L 07/26/16 05:29 [place] # 0.4 K/mm3 (0.0-0.8) 07/26/16 05:29 Eos # 0.0 K/mm3 (0.0-0.4) 07/26/16 05:29 Baso # 0.0 K/mm3 (0.0-0.1) 07/26/16 05:29 Add Manual Diff Complete 07/27/16 08:38 Total Counted 100 07/27/16 08:38 Seg Neutrophils % Yard Inspector 07/27/16 08:38 Seg Neuts % (Manual) 96.0 % (40.0-70.0) H 07/27/16 08:38 Band Neutrophils % 0 % 07/27/16 08:38 Lymphocytes % (Manual) 2.0 % (13.4-35.0) L 07/27/16 08:38 Reactive Lymphs % (Man) 0 % 07/27/16 08:38 Monocytes % (Manual) 2.0 % (0.0-7.3) 07/27/16 08:38 Eosinophils % (Manual) 0 % (0.0-4.3) 07/27/16 08:38 Basophils % (Manual) 0 % (0.0-1.8) 07/27/16 08:38 Metamyelocytes % 0 % 07/27/16 08:38 Myelocytes % 0 % 07/27/16 08:38 Promyelocytes % 0 % 07/27/16 08:38 Blast Cells % 0 % 07/27/16 08:38 Nucleated RBC % Not Reportable 07/27/16 08:38 Seg Neutrophils # 4.7 K/mm3 (1.8-7.7) 07/26/16 05:29 Seg Neutrophils # Man 5.1 K/mm3 (1.8-7.7) 07/27/16 08:38 Band Neutrophils # 0.0 K/mm3 07/27/16 08:38 Lymphocytes # (Manual) 0.1 K/mm3 (1.2-5.4) L 07/27/16 08:38 Abs React Lymphs (Man) 0.0 K/mm3 07/27/16 08:38 Monocytes # (Manual) 0.1 K/mm3 (0.0-0.8) 07/27/16 08:38 Eosinophils # (Manual) 0.0 K/mm3 (0.0-0.4) 07/27/16 08:38 Basophils # (Manual) 0.0 K/mm3 (0.0-0.1) 07/27/16 08:38 Metamyelocytes # 0.0 K/mm3 07/27/16 08:38 Myelocytes # 0.0 K/mm3 07/27/16 08:38 Promyelocytes # 0.0 K/mm3 07/27/16 08:38 Blast Cells # 0.0 K/mm3 07/27/16 08:38 WBC Morphology Not Reportable 07/27/16 08:38 Hypersegmented Neuts Not Reportable 07/27/16 08:38 Hyposegmented Neuts Not Reportable 07/27/16 08:38 Hypogranular Neuts Not Reportable 07/27/16 08:38 Smudge Cells Not Reportable 07/27/16 08:38 Toxic Granulation Not Reportable 07/27/16 08:38 Toxic Vacuolation Not Reportable 07/27/16 08:38 Dohle Bodies Not Reportable 07/27/16 08:38 Pelger-Huet Anomaly Not Reportable 07/27/16 08:38 Mirna Rods Not Reportable 07/27/16 08:38 Platelet Estimate Consistent w auto 07/27/16 08:38 Clumped Platelets Not Reportable 07/27/16 08:38 Plt Clumps, EDTA Not Reportable 07/27/16 08:38 Large Platelets Few 07/27/16 08:38 Giant Platelets Not Reportable 07/27/16 08:38 Platelet Satelliting Not Reportable 07/27/16 08:38 Plt Morphology Comment Not Reportable 07/27/16 08:38 RBC Morphology Not Reportable 07/27/16 08:38 Dimorphic RBCs Not Reportable 07/27/16 08:38 Polychromasia Few 07/27/16 08:38 Hypochromasia Not Reportable 07/27/16 08:38 Poikilocytosis Not Reportable 07/27/16 08:38 Anisocytosis 1+ 07/27/16 08:38 Microcytosis Not Reportable 07/27/16 08:38 Macrocytosis Not Reportable 07/27/16 08:38 Spherocytes Not Reportable 07/27/16 08:38 Pappenheimer Bodies Not Reportable 07/27/16 08:38 Sickle Cells Not Reportable 07/27/16 08:38 Target Cells Not Reportable 07/27/16 08:38 Tear Drop Cells Not Reportable 07/27/16 08:38 Ovalocytes Not Reportable 07/27/16 08:38 Helmet Cells Not Reportable 07/27/16 08:38 [place] Bodies Not Reportable 07/27/16 08:38 [place] Rings Not Reportable 07/27/16 08:38 Joy Cells Not Reportable 07/27/16 08:38 Bite Cells Not Reportable 07/27/16 08:38 Crenated Cell Not Reportable 07/27/16 08:38 Elliptocytes Rare 07/27/16 08:38 Acanthocytes (Spur) Not Reportable 07/27/16 08:38 Rouleaux Not Reportable 07/27/16 08:38 Hemoglobin C Crystals Not Reportable 07/27/16 08:38 Schistocytes Not Reportable 07/27/16 08:38 Malaria parasites Not Reportable 07/27/16 08:38 Luc Bodies Not Reportable 07/27/16 08:38 Hem Pathologist Commnt No 07/27/16 08:38 POC ABG pH 7.390 (7.35-7.45) 07/26/16 08:18 POC ABG pCO2 68.4 (35-45) H 07/26/16 08:18 POC ABG pO2 24 (80-105) L 07/26/16 08:18 POC ABG HCO3 41.4 07/26/16 08:18 POC ABG Total CO2 43 07/26/16 08:18 POC ABG O2 Sat 38 07/26/16 08:18 POC ABG Base Excess 16 07/26/16 08:18 FiO2 40 % 07/26/16 08:18 Sodium 144 mmol/L (137-145) 07/27/16 08:38 Potassium 4.2 mmol/L (3.6-5.0) 07/27/16 08:38 Chloride 97.0 mmol/L (98-107) L 07/27/16 08:38 Carbon Dioxide 36 mmol/L (22-30) H 07/27/16 08:38 Anion Gap 15 mmol/L 07/27/16 08:38 BUN 25 mg/dL (9-20) H 07/27/16 08:38 Creatinine 1.1 mg/dL (0.8-1.5) 07/27/16 08:38 Estimated GFR > 60 ml/min 07/27/16 08:38 BUN/Creatinine Ratio 22.72 % 07/27/16 08:38 Glucose 144 mg/dL (75-100) H 07/27/16 08:38 POC Glucose 147 (70-105) H 07/27/16 06:12 Lactic Acid 1.5 mmol/L (0.7-2.0) 07/26/16 06:47 Calcium 8.3 mg/dL (8.4-10.2) L 07/27/16 08:38 Magnesium 2.1 mg/dL (1.7-2.3) 07/26/16 05:29 Total Bilirubin 0.7 mg/dL (0.1-1.2) 07/27/16 08:38 AST 21 units/L (5-40) 07/27/16 08:38 ALT 20 units/L (7-56) 07/27/16 08:38 Alkaline Phosphatase 45 units/L (35-129) 07/27/16 08:38 Troponin T < 0.010 ng/mL (0.00-0.029) 07/26/16 06:47 NT-Pro-B Natriuret Pep 72126 pg/mL (0-900) H 07/26/16 05:29 Total Protein 5.7 g/dL (6.3-8.2) L 07/27/16 08:38 Albumin 3.4 g/dL (3.9-5) L 07/27/16 08:38 Albumin/Globulin Ratio 1.5 % 07/27/16 08:38
--- NOTE | 2016-07-27 19:14 | Progress Note ---
Assessment and Plan 81-year-old male presents to the emergency department via EMS complaining of difficulty breathing. Symptoms began yesterday. He states symptoms upper esophagus and worse throughout the night. Patient denies pain. Patient also reports new onset swelling in his feet. Patient was recently admitted to the hospital for pneumonia. There are no other complaints. Patient was placed on NIPPV by EMS prior to arrival. Patient was also given 5 mg of albuterol and 40 mg of IV Lasix.Patient has history of COPD,CHF nd recurrent pneumonia.Patient Allergic to Carvedelol. 07/27/16 Patient resting on O2 2 litres. O2 satuaration 94%.Patient says breathing better. Patient has been followed by Dr. Flanagan. Transfering the pulmonary service to Dr. Flanagan. - Patient Problems (1) CHF (congestive heart failure) Current Visit: Yes Status: Acute Qualifiers: Congestive heart failure type: combined Congestive heart failure chronicity : acute on chronic Qualified Code(s): I50.43 - Acute on chronic combined systolic (congestive) and diastolic (congestive) heart failure Plan to address problem: Patient received lasis. Mangement as per primary care and cardiology. (2) COPD exacerbation Current Visit: Yes Status: Acute Plan to address problem: Albuterol/atrovent aerosol treatments. Continue Solumedral. O2 supplementation. (3) Acute respiratory failure with hypoxia and hypercapnia Diagnosis Date: 07/07/16 Current Visit: No Status: Acute Plan to address problem: BIPAP 20/10, Rate 20, FIO2 40%. Continue APIXAban Recommend protonix. (4) Pneumonia Current Visit: Yes Status: Acute Qualifiers: Pneumonia type: due to unspecified organism Laterality: bilateral Lung location: lower lobe of lung Qualified Code(s): J18.9 - Pneumonia, unspecified organism Plan to address problem: Patient is on Levaquine and vancomycin. (5) Hypothyroidism Current Visit: No Status: Chronic Qualifiers: Hypothyroidism type: unspecified Qualified Code(s): E03.9 - Hypothyroidism , unspecified Plan to address problem: Patient is on Levothyroxine. Management as per primary care. Subjective Date of service: 07/27/16 Interval history: Patient resting on O2 2 litres. O2 satuaration 94%.Patient says breathing better. Patient has been followed by Dr. Flanagan. Transfering the pulmonary service to Dr. Flanagan. Objective Vital Signs - 12hr 07/27/16 07/27/16 07/27/16 07:58 08:10 13:54 Pulse Rate [ 76 78 76 Bilateral Throughout] Respiratory 20 20 20 Rate [Bilateral Throughout] O2 Sat by Pulse 95 Oximetry 07/27/16 14:05 Pulse Rate [ 74 Bilateral Throughout] Respiratory 20 Rate [Bilateral Throughout] O2 Sat by Pulse Oximetry Constitutional: no acute distress Eyes: non-icteric ENT: oropharynx moist Neck: supple, no JVD Ascultation: Bilateral: diminished breath sounds (Prolonged expiratory phase.) Cardiovascular: regular rate and rhythm Gastrointestinal: normoactive bowel sounds, soft, non-tender Integumentary: normal Extremities: no cyanosis, no edema Neurologic: normal mental status, non-focal exam, pupils equal and round, CN II- XII normal Psychiatric: mood appropriate CBC and BMP: 07/27/16 08:38 07/27/16 08:38 ABG, PT/INR, D-dimer: ABG POC ABG pH 7.390 (7.35-7.45) 07/26/16 08:18 POC ABG pCO2 68.4 (35-45) H 07/26/16 08:18 POC ABG pO2 24 (80-105) L 07/26/16 08:18 POC ABG HCO3 41.4 07/26/16 08:18 POC ABG Total CO2 43 07/26/16 08:18 POC ABG O2 Sat 38 07/26/16 08:18 Abnormal lab findings: Abnormal Labs 07/27/16 07/27/16 07/27/16 06:12 08:38 08:38 RBC 3.39 L Hgb 10.6 L Hct 33.1 L MCV 98 H RDW 17.7 H Plt Count 135 L Seg Neuts % (Manual) 96.0 H Lymphocytes % (Manual) 2.0 L Lymphocytes # (Manual) 0.1 L Chloride 97.0 L Carbon Dioxide 36 H BUN 25 H Glucose 144 H POC Glucose 147 H Calcium 8.3 L Total Protein 5.7 L Albumin 3.4 L Chest x-ray: report reviewed (Chronic bibasilar interstitial changes.), image reviewed
[2016-07-28] MEDS: DUONEB 0.5 MG-3 MG/3 ML SOLN IH SCH ×4 (01:11→19:55)
[2016-07-28] MEDS: SYNTHROID PO SCH (05:27)
[2016-07-28] MEDS: BROVANA NEBU IH SCH ×2 (09:30→19:56)
[2016-07-28] MEDS: PULMICORT IH SCH ×2 (09:30→19:55)
[2016-07-28] MEDS: ELIQUIS PO SCH ×2 (11:03→22:17)
[2016-07-28] MEDS: K-DUR PO SCH (11:03)
[2016-07-28] MEDS: ZESTRIL PO SCH (11:04)
[2016-07-28] MEDS: MUCINEX ER PO SCH ×2 (11:04→23:18)
[2016-07-28] MEDS: LASIX PO SCH (11:04)
[2016-07-28] MEDS: FLOMAX PO SCH (11:04)
[2016-07-28] MEDS: HALFPRIN EC PO SCH (11:04)
[2016-07-28] MEDS: TENORMIN PO SCH (11:05)
[2016-07-28] MEDS: LEVAQUIN 750MG/150ML 150 ML IV SCH (11:05)
[2016-07-28] MEDS: VANCOMYCIN VIAL 1,250 MG in NACL 0.9% 250ML 250 ML IV SCH (12:50)
[2016-07-28] MEDS: VITAMIN E CAP PO SCH (12:51)
--- NOTE | 2016-07-28 15:09 | Progress Note ---
Addendum entered and electronically signed by SEAMUS MATTSON MD 07/28/16 19:14 : Cardiac status is stable, continue medical therapy. Original Note: Assessment and Plan Acute respiratory failure COPD exacerbation Hx of CAD with remote 3 vessel CABG Ischemic Cardiomyopathy Echo reports a moderate MR, ejection fraction 15% done 06/2016 fixed inferolateral defect of old [place]. No reversible ischemia by MPI 06/2016 Presence of ACID Hx of paroxysmal atrial tachycardia/flutter on Eliquis for anticoagulation Recommendations: Continue medical and pulmonary management of his COPD exacerbation. Continue medical therapy for ischemic cardiomyopathy and coronary disease. Continue anticoagulation for paroxysmal atrial tachycardia/flutter. Subjective Date of service: 07/28/16 Interval history: Patient reports his breathing has improved. He denies chest pain. Objective Vital Signs Temp Pulse Pulse Pulse Resp Resp Resp 07/28/16 14:12 76 24 07/28/16 14:01 82 24 07/28/16 09:42 78 26 H 07/28/16 09:27 80 24 07/28/16 08:00 97.7 F 74 18 07/28/16 04:15 97.8 F 75 24 07/27/16 23:00 97.7 F 76 24 07/27/16 21:24 74 18 16 07/27/16 21:07 07/27/16 20:00 72 16 07/27/16 15:50 97.9 F 78 20 BP BP Pulse Ox 07/28/16 14:12 07/28/16 14:01 07/28/16 09:42 07/28/16 09:27 94 07/28/16 08:00 100/58 97 07/28/16 04:15 90/52 93 07/27/16 23:00 104/55 94 07/27/16 21:24 95 07/27/16 21:07 94 07/27/16 20:00 07/27/16 15:50 84/46 93 - Physical Examination General: No Apparent Distress HEENT: Positive: PERRL Neck: Positive: trachea midline Cardiac: Positive: Reg Rate and Rhythm Lungs: Positive: Decreased Breath Sounds Neuro: Positive: Grossly Intact
[2016-07-28 17:10] LABS: ISTAT Base Excess 12; ISTAT HCO3 36.6; ISTAT PCO2 54.9 (35-45); ISTAT PH 7.432 (7.35-7.45); ISTAT PO2 91 (80-105); ISTAT SO2 97; ISTAT TCO2 38
--- NOTE | 2016-07-28 21:42 | Progress Note ---
[id number] 40% BiPAP 01/05 IV antibiotics and supportive care --Community-acquired pneumonia IV antibiotics Vanco and Levaquin, follow blood and sputum cultures Supportive care --Acute on chronic systolic congestive heart failure, ejection fraction 15% 2 months ago Continue current anti-failure medications, cardiology following --History of AICD --She of coronary artery disease status post CABG, new current cardiac medications --Paroxysmal atrial fibrillation rate controlled, continue Eliquis --COPD exacerbation with bronchitis Managed with nebulizers, IV steroids, IV antibiotics, pulmonary lying --hypothyroidism stable on Synthroid --Hypertension well-controlled Continue current antihypertensives and when necessary medications --Dyslipidemia; stable on medications DVT prophylaxis patient is on eliquis --Full CODE STATUS Closely monitor the patient and adjust the management as needed consult noted and appreciated Plan of care discussed with the patient and the nurse History Interval history: Patient seen and evaluated in his room Feels slightly better. Has mild shortness of breath,denies chest pain Hospitalist Physical - Constitutional Vitals: Temp Pulse Resp BP Pulse Ox 98.3 F 71 18 98/59 93 07/28/16 19:59 07/28/16 20:05 07/28/16 20:05 07/28/16 19:59 07/28/16 19:59 General appearance: Present: no acute distress, well-nourished - EENT Eyes: Present: PERRL, EOM intact - Neck Neck: Present: supple, normal ROM - Respiratory Respiratory effort: normal Respiratory: bilateral: diminished, rales, negative: rhonchi, wheezing - Cardiovascular Rhythm: regular Heart Sounds: Present: S1 & S2 - Extremities Extremities: no ischemia, pulses intact, pulses symmetrical Peripheral Pulses: within normal limits - Abdominal General gastrointestinal: soft, non-tender, non-distended, normal bowel sounds - Integumentary Integumentary: Present: clear, warm - Psychiatric Psychiatric: appropriate mood/affect, cooperative - Neurologic Neurologic: moves all extremities Results - Labs CBC & Chem 7: 07/29/16 04:30 07/29/16 04:30 Labs: Laboratory Last Values WBC 5.3 K/mm3 (4.5-11.0) 07/27/16 08:38 RBC 3.39 M/mm3 (3.65-5.03) L 07/27/16 08:38 Hgb 10.6 gm/dl (11.8-15.2) L 07/27/16 08:38 Hct 33.1 % (35.5-45.6) L 07/27/16 08:38 MCV 98 fl (84-94) H 07/27/16 08:38 MCH 31 pg (28-32) 07/27/16 08:38 MCHC 32 % (32-34) 07/27/16 08:38 RDW 17.7 % (13.2-15.2) H 07/27/16 08:38 Plt Count 135 K/mm3 (140-440) L 07/27/16 08:38 Lymph % (Auto) 11.1 % (13.4-35.0) L 07/26/16 05:29 [place] % (Auto) 6.6 % (0.0-7.3) 07/26/16 05:29 Eos % (Auto) 0.8 % (0.0-4.3) 07/26/16 05:29 Baso % (Auto) 0.5 % (0.0-1.8) 07/26/16 05:29 Lymph # 0.6 K/mm3 (1.2-5.4) L 07/26/16 05:29 [place] # 0.4 K/mm3 (0.0-0.8) 07/26/16 05:29 Eos # 0.0 K/mm3 (0.0-0.4) 07/26/16 05:29 Baso # 0.0 K/mm3 (0.0-0.1) 07/26/16 05:29 Add Manual Diff Complete 07/27/16 08:38 Total Counted 100 07/27/16 08:38 Seg Neutrophils % Car Inspector 07/27/16 08:38 Seg Neuts % (Manual) 96.0 % (40.0-70.0) H 07/27/16 08:38 Band Neutrophils % 0 % 07/27/16 08:38 Lymphocytes % (Manual) 2.0 % (13.4-35.0) L 07/27/16 08:38 Reactive Lymphs % (Man) 0 % 07/27/16 08:38 Monocytes % (Manual) 2.0 % (0.0-7.3) 07/27/16 08:38 Eosinophils % (Manual) 0 % (0.0-4.3) 07/27/16 08:38 Basophils % (Manual) 0 % (0.0-1.8) 07/27/16 08:38 Metamyelocytes % 0 % 07/27/16 08:38 Myelocytes % 0 % 07/27/16 08:38 Promyelocytes % 0 % 07/27/16 08:38 Blast Cells % 0 % 07/27/16 08:38 Nucleated RBC % Not Reportable 07/27/16 08:38 Seg Neutrophils # 4.7 K/mm3 (1.8-7.7) 07/26/16 05:29 Seg Neutrophils # Man 5.1 K/mm3 (1.8-7.7) 07/27/16 08:38 Band Neutrophils # 0.0 K/mm3 07/27/16 08:38 Lymphocytes # (Manual) 0.1 K/mm3 (1.2-5.4) L 07/27/16 08:38 Abs React Lymphs (Man) 0.0 K/mm3 07/27/16 08:38 Monocytes # (Manual) 0.1 K/mm3 (0.0-0.8) 07/27/16 08:38 Eosinophils # (Manual) 0.0 K/mm3 (0.0-0.4) 07/27/16 08:38 Basophils # (Manual) 0.0 K/mm3 (0.0-0.1) 07/27/16 08:38 Metamyelocytes # 0.0 K/mm3 07/27/16 08:38 Myelocytes # 0.0 K/mm3 07/27/16 08:38 Promyelocytes # 0.0 K/mm3 07/27/16 08:38 Blast Cells # 0.0 K/mm3 07/27/16 08:38 WBC Morphology Not Reportable 07/27/16 08:38 Hypersegmented Neuts Not Reportable 07/27/16 08:38 Hyposegmented Neuts Not Reportable 07/27/16 08:38 Hypogranular Neuts Not Reportable 07/27/16 08:38 Smudge Cells Not Reportable 07/27/16 08:38 Toxic Granulation Not Reportable 07/27/16 08:38 Toxic Vacuolation Not Reportable 07/27/16 08:38 Dohle Bodies Not Reportable 07/27/16 08:38 Pelger-Huet Anomaly Not Reportable 07/27/16 08:38 Mirna Rods Not Reportable 07/27/16 08:38 Platelet Estimate Consistent w auto 07/27/16 08:38 Clumped Platelets Not Reportable 07/27/16 08:38 Plt Clumps, EDTA Not Reportable 07/27/16 08:38 Large Platelets Few 07/27/16 08:38 Giant Platelets Not Reportable 07/27/16 08:38 Platelet Satelliting Not Reportable 07/27/16 08:38 Plt Morphology Comment Not Reportable 07/27/16 08:38 RBC Morphology Not Reportable 07/27/16 08:38 Dimorphic RBCs Not Reportable 07/27/16 08:38 Polychromasia Few 07/27/16 08:38 Hypochromasia Not Reportable 07/27/16 08:38 Poikilocytosis Not Reportable 07/27/16 08:38 Anisocytosis 1+ 07/27/16 08:38 Microcytosis Not Reportable 07/27/16 08:38 Macrocytosis Not Reportable 07/27/16 08:38 Spherocytes Not Reportable 07/27/16 08:38 Pappenheimer Bodies Not Reportable 07/27/16 08:38 Sickle Cells Not Reportable 07/27/16 08:38 Target Cells Not Reportable 07/27/16 08:38 Tear Drop Cells Not Reportable 07/27/16 08:38 Ovalocytes Not Reportable 07/27/16 08:38 Helmet Cells Not Reportable 07/27/16 08:38 [place] Bodies Not Reportable 07/27/16 08:38 [place] Rings Not Reportable 07/27/16 08:38 [place] Cells Not Reportable 07/27/16 08:38 Bite Cells Not Reportable 07/27/16 08:38 Crenated Cell Not Reportable 07/27/16 08:38 Elliptocytes Rare 07/27/16 08:38 Acanthocytes (Spur) Not Reportable 07/27/16 08:38 Rouleaux Not Reportable 07/27/16 08:38 Hemoglobin C Crystals Not Reportable 07/27/16 08:38 Schistocytes Not Reportable 07/27/16 08:38 Malaria parasites Not Reportable 07/27/16 08:38 Luc Bodies Not Reportable 07/27/16 08:38 Hem Pathologist Commnt No 07/27/16 08:38 POC ABG pH 7.432 (7.35-7.45) 07/28/16 16:47 POC ABG pCO2 54.9 (35-45) H 07/28/16 16:47 POC ABG pO2 91 (80-105) 07/28/16 16:47 POC ABG HCO3 36.6 07/28/16 16:47 POC ABG Total CO2 38 07/28/16 16:47 POC ABG O2 Sat 97 07/28/16 16:47 POC ABG Base Excess 12 07/28/16 16:47 FiO2 2 % 07/28/16 16:47 Sodium 144 mmol/L (137-145) 07/27/16 08:38 Potassium 4.2 mmol/L (3.6-5.0) 07/27/16 08:38 Chloride 97.0 mmol/L (98-107) L 07/27/16 08:38 Carbon Dioxide 36 mmol/L (22-30) H 07/27/16 08:38 Anion Gap 15 mmol/L 07/27/16 08:38 BUN 25 mg/dL (9-20) H 07/27/16 08:38 Creatinine 1.1 mg/dL (0.8-1.5) 07/27/16 08:38 Estimated GFR > 60 ml/min 07/27/16 08:38 BUN/Creatinine Ratio 22.72 % 07/27/16 08:38 Glucose 144 mg/dL (75-100) H 07/27/16 08:38 POC Glucose 218 (70-105) H 07/28/16 21:08 Lactic Acid 1.5 mmol/L (0.7-2.0) 07/26/16 06:47 Calcium 8.3 mg/dL (8.4-10.2) L 07/27/16 08:38 Magnesium 2.1 mg/dL (1.7-2.3) 07/26/16 05:29 Total Bilirubin 0.7 mg/dL (0.1-1.2) 07/27/16 08:38 AST 21 units/L (5-40) 07/27/16 08:38 ALT 20 units/L (7-56) 07/27/16 08:38 Alkaline Phosphatase 45 units/L (35-129) 07/27/16 08:38 Troponin T < 0.010 ng/mL (0.00-0.029) 07/26/16 06:47 NT-Pro-B Natriuret Pep 69632 pg/mL (0-900) H 07/26/16 05:29 Total Protein 5.7 g/dL (6.3-8.2) L 07/27/16 08:38 Albumin 3.4 g/dL (3.9-5) L 07/27/16 08:38 Albumin/Globulin Ratio 1.5 % 07/27/16 08:38
[2016-07-29] MEDS: VANCOMYCIN VIAL 1,250 MG in NACL 0.9% 250ML 250 ML IV SCH ×3 (00:40→13:55)
[2016-07-29] MEDS: DUONEB 0.5 MG-3 MG/3 ML SOLN IH SCH ×4 (01:14→20:50)
[2016-07-29 05:08] LABS: Hematocrit 29.2 % (35.5-45.6); Hemoglobin 9.5 gm/dl (11.8-15.2); Mean Corpuscular HGB Conc 33 % (32-34); Mean Corpuscular Hemoglobin 32 pg (28-32); Mean Corpuscular Volume 97 fl (84-94); Red Cell Distribution Width 17.9 % (13.2-15.2); White Blood Count 4.8 K/mm3 (4.5-11.0)
[2016-07-29 05:11] LABS: Platelet Count 96 K/mm3 (140-440)
[2016-07-29 05:23] LABS: Anion Gap 14 mmol/L; Blood Urea Nitrogen 40 mg/dL (9-20); Calcium 7.9 mg/dL (8.4-10.2); Carbon Dioxide 34 mmol/L (22-30); Chloride 99.1 mmol/L (98-107); Glucose 176 mg/dL (75-100); Magnesium 2.3 mg/dL (1.7-2.3); Potassium 4.4 mmol/L (3.6-5.0); Sodium 143 mmol/L (137-145)
[2016-07-29 05:56] LABS: Basophils % (Manual) 0 % (0.0-1.8); Blastocytes % (Manual) 0 %; Eosinophils % (Manual) 0 % (0.0-4.3)
[2016-07-29 05:58] LABS: Anisocytosis 1+; Diff Status Complete; Platelet Estimate Appears Decreased
[2016-07-29] MEDS: SYNTHROID PO SCH (06:26)
[2016-07-29] MEDS: BROVANA NEBU IH SCH ×2 (07:48→20:50)
[2016-07-29] MEDS: PULMICORT IH SCH ×2 (07:48→20:50)
--- NOTE | 2016-07-29 08:10 | Consultation ---
History of Present Illness Consult date: 07/29/16 Requesting physician: ABIMBOLA ALMONTE Reason for consult: dyspnea History of present illness: 81 y/o male with ischemic cardiomyopathy, EF of 15%, admitted 3 days ago with worsening dyspnea on exertion. Seen by [facility] heart and Dr. Portillo. Called yesterday evening as he (Dr. Portillo) found out the patient belonged to our practice so asked that I see him. This am patient is up in the bed, awake and alert. States that he feels better than on admission. Prior pulm doc placed patient on abx therapy and steroids. CXR reviewed and patient does have significant cardiomegaly with hardware intact but no evidence of acute lung disease. Perhaps some atelectasis in the retrocardiac space and left lower lobe near the costophrenic angle. Past History Past Medical History: CAD, COPD, hypertension, hypothyroidism Past Surgical History: No surgical history Social history: , smoking Family history: no significant family history Medications and Allergies Allergies Allergy/AdvReac Type Severity Reaction Status Date / Time carvedilol [From Coreg] Allergy Unknown Verified 07/03/16 11:12 Home Medications Medication Instructions Recorded Confirmed Last Taken Type Cyanocobalamin [Vitamin B-12] 1,000 mcg IM QMONTH 04/05/15 07/26/16 07/25/16 History Furosemide [Lasix TAB] 40 mg PO QDAY 04/05/15 07/26/16 07/25/16 History Ipratropium (Nf) [Atrovent HFA 2 puff IH Q6HR PRN 04/05/15 07/26/16 07/25/16 History 17MCG/PUFF] Levothyroxine [Synthroid] 88 mcg PO QAM 04/05/15 07/26/16 07/25/16 History Nitroglycerin [Nitrostat] 0.4 mg SL Q5M PRN 04/05/15 07/26/16 07/25/16 History Potassium Chloride [K-Dur] 10 meq PO QDAY 04/05/15 07/26/16 07/25/16 History Vitamin E 1,000 unit PO DAILY 04/05/15 07/26/16 07/25/16 History Tamsulosin [Flomax] 1 mg PO DAILY 07/03/16 07/26/16 07/25/16 History ALBUTEROL NEB's [Proventil 0.083% 2.5 mg IH Q4H PRN 30 Days 07/15/16 07/26/16 Rx NEBS] Apixaban [Eliquis] 5 mg PO Q12HR #60 tablet 07/15/16 07/26/16 07/25/16 Rx Aspirin EC [Aspirin Enteric Coated 81 mg PO QDAY #30 tablet 07/15/16 07/26/16 Rx TAB] Atenolol [Tenormin] 25 mg PO QDAY #30 tablet 07/15/16 07/26/16 07/25/16 Rx AtorvaSTATin [Lipitor] 40 mg PO QHS #30 tablet 07/15/16 07/26/16 07/25/16 Rx Budesoni/Formotero 160-4.5(Nf) 1 puff IH BID 30 Days 07/15/16 07/26/16 07/25/16 Rx [Symbicort 160-4.5 (Nf)] Ipratropium/Albuterol Sulfate 1 ampul IH Q6HRT 30 Days 07/15/16 07/26/16 Rx [Duoneb 0.5 mg-3 mg/3 ml Soln] Levofloxacin [Levaquin TAB] 500 mg PO Q24HR #5 tablet 07/15/16 07/26/16 Rx Lisinopril [Zestril TAB] 2.5 mg PO QDAY #30 tablet 07/15/16 07/26/16 07/25/16 Rx guaiFENesin ER [Mucinex ER] 600 mg PO BID #20 tablet 07/15/16 07/26/16 07/25/16 Rx predniSONE [Deltasone] 10 mg PO .TAPER #48 tab 07/15/16 07/26/16 07/25/16 Rx Active Meds: Active Medications Acetaminophen (Tylenol) 650 mg PO Q4H PRN PRN Reason: Pain MILD(1-3)/Fever >100.5/CAMPOS Albuterol (Proventil) 2.5 mg IH Q4H PRN PRN Reason: Shortness Of Breath Albuterol/Ipratropium (Duoneb 0.5 Mg-3 Mg/3 Ml Soln) 1 ampul IH Q6HRT BRENDA Last Admin: 07/29/16 07:48 Dose: Not Given Apixaban (Eliquis) 5 mg PO Q12HR [facility] Last Admin: 07/28/16 22:17 Dose: 5 mg Arformoterol Tartrate (Brovana Nebu) 15 mcg IH Q12HRT [facility] Last Admin: 07/29/16 07:48 Dose: 15 mcg Aspirin (Halfprin Ec) 81 mg PO QDAY [facility] Last Admin: 07/28/16 11:04 Dose: 81 mg Atenolol (Tenormin) 25 mg PO QDAY [facility] Last Admin: 07/28/16 11:05 Dose: Not Given Atorvastatin Calcium (Lipitor) 40 mg PO QHS [facility] Last Admin: 07/28/16 22:18 Dose: 40 mg Bisacodyl (Dulcolax) 10 mg NC QDAY PRN PRN Reason: Constipation unrelieved by MOM Budesonide (Pulmicort) 0.5 mg IH Q12HRT [facility] Last Admin: 07/29/16 07:48 Dose: 0.5 mg Furosemide (Lasix) 40 mg PO QDAY [facility] Last Admin: 07/28/16 11:04 Dose: 40 mg Guaifenesin (Mucinex Er) 600 mg PO BID [facility] Last Admin: 07/28/16 23:18 Dose: 600 mg Hydromorphone HCl (Dilaudid) 0.5 mg IV Q3H PRN PRN Reason: Pain , Severe (7-10) Levofloxacin/Dextrose (Levaquin 750mg/150ml) 150 mls @ 100 mls/hr IV Q24HR [facility] PRN Reason: Protocol Last Admin: 07/28/16 11:05 Dose: 100 mls/hr Vancomycin HCl 1,250 mg/ (Sodium Chloride) 250 mls @ 166.667 mls/hr IV Q12H [facility] Last Admin: 07/29/16 00:40 Dose: 166.667 mls/hr Levothyroxine Sodium (Synthroid) 88 mcg PO DAILY@0600 [facility] Last Admin: 07/29/16 06:26 Dose: 88 mcg Lisinopril (Zestril) 2.5 mg PO QDAY [facility] Last Admin: 07/28/16 11:04 Dose: Not Given Magnesium Hydroxide (Milk Of Magnesia) 30 ml PO Q4H PRN PRN Reason: Constipation Methylprednisolone Sodium Succinate (Solu-Medrol) 80 mg IV Q8HR [facility] Last Admin: 07/29/16 06:25 Dose: 80 mg Ondansetron HCl (Zofran) 4 mg IV Q8H PRN PRN Reason: N/V unrelieved by Reglan Oxycodone/Acetaminophen (Percocet 5/325) 1 tab PO Q6H PRN PRN Reason: Pain, Moderate (4-6) Potassium Chloride (K-Dur) 10 meq PO QDAY [facility] Last Admin: 07/28/16 11:03 Dose: 10 meq Tamsulosin HCl (Flomax) 0.4 mg PO DAILY [facility] Last Admin: 07/28/16 11:04 Dose: 0.4 mg Vancomycin HCl (Vancomycin Pharmacy To Dose) 1 each IV PKCONSULT [facility] PRN Reason: Protocol Vitamin E (Vitamin E Cap) 1,000 unit PO QDAY [facility] Last Admin: 07/28/16 12:51 Dose: 1,000 unit Review of Systems All systems: negative Physical Examination Vital signs: Vital Signs Resp Pulse Ox 33 H 94 07/26/16 05:12 07/26/16 05:12 General appearance: no acute distress, alert Eyes: non-icteric ENT: oropharynx moist Neck: supple Ascultation: Bilateral: rales Percussion: Bilateral: not dull Tactile fremitus: Bilateral: normal Cardiovascular: regular rate and rhythm, other (displaced PMI) Gastrointestinal: normoactive bowel sounds Extremities: no cyanosis, no edema Results - Laboratory Findings CBC and BMP: 07/29/16 04:30 07/29/16 04:30 ABG POC ABG pH 7.432 (7.35-7.45) 07/28/16 16:47 POC ABG pCO2 54.9 (35-45) H 07/28/16 16:47 POC ABG pO2 91 (80-105) 07/28/16 16:47 POC ABG HCO3 36.6 07/28/16 16:47 POC ABG Total CO2 38 07/28/16 16:47 POC ABG O2 Sat 97 07/28/16 16:47 Abnormal lab findings: Abnormal Labs 07/27/16 07/27/16 07/27/16 06:12 08:38 08:38 RBC 3.39 L Hgb 10.6 L Hct 33.1 L MCV 98 H RDW 17.7 H Plt Count 135 L Seg Neuts % (Manual) 96.0 H Lymphocytes % (Manual) 2.0 L Lymphocytes # (Manual) 0.1 L POC ABG pCO2 Chloride 97.0 L Carbon Dioxide 36 H BUN 25 H Glucose 144 H POC Glucose 147 H Calcium 8.3 L Total Protein 5.7 L Albumin 3.4 L 07/28/16 07/28/16 07/28/16 06:13 12:21 16:40 RBC Hgb Hct MCV RDW Plt Count Seg Neuts % (Manual) Lymphocytes % (Manual) Lymphocytes # (Manual) POC ABG pCO2 Chloride Carbon Dioxide BUN Glucose POC Glucose 137 H 203 H 180 H Calcium Total Protein Albumin 07/28/16 07/28/16 07/29/16 16:47 21:08 04:30 RBC 3.00 L Hgb 9.5 L Hct 29.2 L MCV 97 H RDW 17.9 H Plt Count 96 L Seg Neuts % (Manual) 97.0 H Lymphocytes % (Manual) 2.0 L Lymphocytes # (Manual) 0.1 L POC ABG pCO2 54.9 H Chloride Carbon Dioxide BUN Glucose POC Glucose 218 H Calcium Total Protein Albumin 07/29/16 07/29/16 04:30 06:34 RBC Hgb Hct MCV RDW Plt Count Seg Neuts % (Manual) Lymphocytes % (Manual) Lymphocytes # (Manual) POC ABG pCO2 Chloride Carbon Dioxide 34 H BUN 40 H Glucose 176 H POC Glucose 169 H Calcium 7.9 L Total Protein Albumin - Diagnostic Findings Chest x-ray: image reviewed (CXR as stated in HPI) Assessment and Plan 81 y/o male with acute on chronic respiratory failure thought secondary to volume overload and CHF exacerbation, questionable COPD exacerbation. 1. Would stop Vanc and Levaquin. Patient has been afebrile, no white count, no sputum production and no acute evidence of acute lung disease on CXR 2. Please change to prednisone 60. At discharge would taper as follows 60x3, 40x3, 20x3, 10x3 then stop. 3. Continue supplemental O2 4. Consider discontinuing stewart and allow patient to void in urinal 5. Thank you for the consult, will continue to follow along with you.
[2016-07-29] MEDS: MUCINEX ER PO SCH ×2 (11:39→23:49)
[2016-07-29] MEDS: TENORMIN PO SCH (11:39)
[2016-07-29] MEDS: LASIX PO SCH (11:40)
[2016-07-29] MEDS: FLOMAX PO SCH (11:41)
[2016-07-29] MEDS: ELIQUIS PO SCH ×2 (11:41→23:43)
[2016-07-29] MEDS: K-DUR PO SCH (11:41)
[2016-07-29] MEDS: ZESTRIL PO SCH (11:42)
[2016-07-29] MEDS: HALFPRIN EC PO SCH (11:42)
[2016-07-29] MEDS: VITAMIN E CAP PO SCH (11:44)
[2016-07-29] MEDS: LEVAQUIN 750MG/150ML 150 ML IV SCH (11:50)
--- NOTE | 2016-07-29 11:51 | Progress Note ---
Assessment and Plan Assessment and plan: Assessment and plan: --Acute on chronic hypoxic hypercapnic respiratory failure due to COPD exacerbation Requiring BiPAP, supplemental Oxygen.iV antibiotics and supportive care. He feels better, less SOB. Pulm and cardiology following. COPD exacerbation with bronchitis Managed with nebulizers, IV steroids, IV antibiotics. Pulm following Acute on chronic systolic congestive heart failure, ejection fraction 15% Continue current anti-failure medications, cardiology following History of AICD Paroxysmal atrial fibrillation rate controlled, continue Eliquis COPD exacerbation with bronchitis Managed with nebulizers, IV steroids, IV antibiotics. Pulm following hypothyroidism stable on Synthroid. CAD s/p CABG Hypertension well-controlled Continue current antihypertensives and when necessary medications. Dyslipidemia; stable on medications DVT prophylaxis: Patient is on eliquis Full CODE STATUS History Interval history: Feels better, less shortness of breath Hospitalist Physical - Physical exam Narrative exam: Gen appearance : not in acute distress, ill looking HEENT: Normocephalic atraumatic, Neck: supple, no JVD. Lungs: Decreased BS bilaterally, no crackles no wheezes Heart: S1 and S2 regular, no murmurs no gallop Abdomen: soft, non-tender, non-distended, normal bowel sounds Extremities: no edema, no clubbing or cyanosis Neuro: Awake alert oriented - Constitutional Vitals: Temp Pulse Resp BP Pulse Ox 97.8 F 80 18 110/58 98 07/29/16 08:00 07/29/16 11:39 07/29/16 08:00 07/29/16 11:39 07/29/16 08:00 General appearance: Present: well-nourished Results - Labs CBC & Chem 7: 07/29/16 04:30 07/29/16 04:30 Labs: Laboratory Last Values WBC 4.8 K/mm3 (4.5-11.0) 07/29/16 04:30 RBC 3.00 M/mm3 (3.65-5.03) L 07/29/16 04:30 Hgb 9.5 gm/dl (11.8-15.2) L 07/29/16 04:30 Hct 29.2 % (35.5-45.6) L 07/29/16 04:30 MCV 97 fl (84-94) H 07/29/16 04:30 MCH 32 pg (28-32) 07/29/16 04:30 MCHC 33 % (32-34) 07/29/16 04:30 RDW 17.9 % (13.2-15.2) H 07/29/16 04:30 Plt Count 96 K/mm3 (140-440) L 07/29/16 04:30 Lymph % (Auto) 11.1 % (13.4-35.0) L 07/26/16 05:29 [place] % (Auto) 6.6 % (0.0-7.3) 07/26/16 05:29 Eos % (Auto) 0.8 % (0.0-4.3) 07/26/16 05:29 Baso % (Auto) 0.5 % (0.0-1.8) 07/26/16 05:29 Lymph # 0.6 K/mm3 (1.2-5.4) L 07/26/16 05:29 [place] # 0.4 K/mm3 (0.0-0.8) 07/26/16 05:29 Eos # 0.0 K/mm3 (0.0-0.4) 07/26/16 05:29 Baso # 0.0 K/mm3 (0.0-0.1) 07/26/16 05:29 Add Manual Diff Complete 07/29/16 04:30 Total Counted 100 07/29/16 04:30 Seg Neutrophils % Water Inspector 07/29/16 04:30 Seg Neuts % (Manual) 97.0 % (40.0-70.0) H 07/29/16 04:30 Band Neutrophils % 0 % 07/29/16 04:30 Lymphocytes % (Manual) 2.0 % (13.4-35.0) L 07/29/16 04:30 Reactive Lymphs % (Man) 0 % 07/29/16 04:30 Monocytes % (Manual) 1.0 % (0.0-7.3) 07/29/16 04:30 Eosinophils % (Manual) 0 % (0.0-4.3) 07/29/16 04:30 Basophils % (Manual) 0 % (0.0-1.8) 07/29/16 04:30 Metamyelocytes % 0 % 07/29/16 04:30 Myelocytes % 0 % 07/29/16 04:30 Promyelocytes % 0 % 07/29/16 04:30 Blast Cells % 0 % 07/29/16 04:30 Nucleated RBC % Not Reportable 07/29/16 04:30 Seg Neutrophils # 4.7 K/mm3 (1.8-7.7) 07/26/16 05:29 Seg Neutrophils # Man 4.7 K/mm3 (1.8-7.7) 07/29/16 04:30 Band Neutrophils # 0.0 K/mm3 07/29/16 04:30 Lymphocytes # (Manual) 0.1 K/mm3 (1.2-5.4) L 07/29/16 04:30 Abs React Lymphs (Man) 0.0 K/mm3 07/29/16 04:30 Monocytes # (Manual) 0.0 K/mm3 (0.0-0.8) 07/29/16 04:30 Eosinophils # (Manual) 0.0 K/mm3 (0.0-0.4) 07/29/16 04:30 Basophils # (Manual) 0.0 K/mm3 (0.0-0.1) 07/29/16 04:30 Metamyelocytes # 0.0 K/mm3 07/29/16 04:30 Myelocytes # 0.0 K/mm3 07/29/16 04:30 Promyelocytes # 0.0 K/mm3 07/29/16 04:30 Blast Cells # 0.0 K/mm3 07/29/16 04:30 WBC Morphology Not Reportable 07/29/16 04:30 Hypersegmented Neuts Not Reportable 07/29/16 04:30 Hyposegmented Neuts Not Reportable 07/29/16 04:30 Hypogranular Neuts Not Reportable 07/29/16 04:30 Smudge Cells Not Reportable 07/29/16 04:30 Toxic Granulation Not Reportable 07/29/16 04:30 Toxic Vacuolation Not Reportable 07/29/16 04:30 Dohle Bodies Not Reportable 07/29/16 04:30 Pelger-Huet Anomaly Not Reportable 07/29/16 04:30 Mirna Rods Not Reportable 07/29/16 04:30 Platelet Estimate Appears decreased 07/29/16 04:30 Clumped Platelets Not Reportable 07/29/16 04:30 Plt Clumps, EDTA Not Reportable 07/29/16 04:30 Large Platelets Not Reportable 07/29/16 04:30 Giant Platelets Not Reportable 07/29/16 04:30 Platelet Satelliting Not Reportable 07/29/16 04:30 Plt Morphology Comment Not Reportable 07/29/16 04:30 RBC Morphology Not Reportable 07/29/16 04:30 Dimorphic RBCs Not Reportable 07/29/16 04:30 Polychromasia Not Reportable 07/29/16 04:30 Hypochromasia Not Reportable 07/29/16 04:30 Poikilocytosis Not Reportable 07/29/16 04:30 Anisocytosis 1+ 07/29/16 04:30 Microcytosis Not Reportable 07/29/16 04:30 Macrocytosis Not Reportable 07/29/16 04:30 Spherocytes Not Reportable 07/29/16 04:30 Pappenheimer Bodies Not Reportable 07/29/16 04:30 Sickle Cells Not Reportable 07/29/16 04:30 Target Cells Not Reportable 07/29/16 04:30 Tear Drop Cells Not Reportable 07/29/16 04:30 Ovalocytes Not Reportable 07/29/16 04:30 Helmet Cells Not Reportable 07/29/16 04:30 [place] Bodies Not Reportable 07/29/16 04:30 [place] Rings Not Reportable 07/29/16 04:30 [place] Cells Not Reportable 07/29/16 04:30 Bite Cells Not Reportable 07/29/16 04:30 Crenated Cell Not Reportable 07/29/16 04:30 Elliptocytes Not Reportable 07/29/16 04:30 Acanthocytes (Spur) Not Reportable 07/29/16 04:30 Rouleaux Not Reportable 07/29/16 04:30 Hemoglobin C Crystals Not Reportable 07/29/16 04:30 Schistocytes Not Reportable 07/29/16 04:30 Malaria parasites Not Reportable 07/29/16 04:30 Luc Bodies Not Reportable 07/29/16 04:30 Hem Pathologist Commnt No 07/29/16 04:30 POC ABG pH 7.432 (7.35-7.45) 07/28/16 16:47 POC ABG pCO2 54.9 (35-45) H 07/28/16 16:47 POC ABG pO2 91 (80-105) 07/28/16 16:47 POC ABG HCO3 36.6 07/28/16 16:47 POC ABG Total CO2 38 07/28/16 16:47 POC ABG O2 Sat 97 07/28/16 16:47 POC ABG Base Excess 12 07/28/16 16:47 FiO2 2 % 07/28/16 16:47 Sodium 143 mmol/L (137-145) 07/29/16 04:30 Potassium 4.4 mmol/L (3.6-5.0) 07/29/16 04:30 Chloride 99.1 mmol/L (98-107) 07/29/16 04:30 Carbon Dioxide 34 mmol/L (22-30) H 07/29/16 04:30 Anion Gap 14 mmol/L 07/29/16 04:30 BUN 40 mg/dL (9-20) H 07/29/16 04:30 Creatinine 1.0 mg/dL (0.8-1.5) 07/29/16 04:30 Estimated GFR > 60 ml/min 07/29/16 04:30 BUN/Creatinine Ratio 40.00 % 07/29/16 04:30 Glucose 176 mg/dL (75-100) H 07/29/16 04:30 POC Glucose 169 (70-105) H 07/29/16 06:34 Lactic Acid 1.5 mmol/L (0.7-2.0) 07/26/16 06:47 Calcium 7.9 mg/dL (8.4-10.2) L 07/29/16 04:30 Magnesium 2.3 mg/dL (1.7-2.3) 07/29/16 04:30 Total Bilirubin 0.7 mg/dL (0.1-1.2) 07/27/16 08:38 AST 21 units/L (5-40) 07/27/16 08:38 ALT 20 units/L (7-56) 07/27/16 08:38 Alkaline Phosphatase 45 units/L (35-129) 07/27/16 08:38 Troponin T < 0.010 ng/mL (0.00-0.029) 07/26/16 06:47 NT-Pro-B Natriuret Pep 62612 pg/mL (0-900) H 07/26/16 05:29 Total Protein 5.7 g/dL (6.3-8.2) L 07/27/16 08:38 Albumin 3.4 g/dL (3.9-5) L 07/27/16 08:38 Albumin/Globulin Ratio 1.5 % 07/27/16 08:38
--- NOTE | 2016-07-29 12:10 | Progress Note ---
Addendum entered and electronically signed by SEAMUS MATTSON MD 07/29/16 12:44 : Conservative cardiac management. Original Note: Assessment and Plan Acute respiratory failure COPD exacerbation Hx of CAD with remote 3 vessel CABG Ischemic Cardiomyopathy Echo reports a moderate MR, ejection fraction 15% done 06/2016 fixed inferolateral defect of old [place]. No reversible ischemia by MPI 06/2016 Presence of ACID Hx of paroxysmal atrial tachycardia/flutter on Eliquis for anticoagulation Recommendations: Continue medical and pulmonary management of his COPD exacerbation. Continue medical therapy for ischemic cardiomyopathy and coronary disease. Continue anticoagulation for paroxysmal atrial tachycardia/flutter. Subjective Date of service: 07/29/16 Interval history: Patient reports his breathing has improved. He denies chest pain. Objective Vital Signs Temp Pulse Pulse Pulse Pulse Resp Resp 07/29/16 11:39 80 07/29/16 08:00 97.8 F 85 80 16 18 07/29/16 07:50 07/29/16 07:49 84 18 07/29/16 04:26 97.8 F 78 16 07/29/16 01:19 77 20 07/29/16 01:10 74 18 07/29/16 01:04 74 18 07/29/16 00:17 98.3 F 81 16 07/28/16 22:00 76 07/28/16 20:05 71 18 07/28/16 19:59 98.3 F 81 16 07/28/16 19:58 07/28/16 19:56 79 17 07/28/16 16:36 07/28/16 16:30 98 F 80 20 07/28/16 14:12 76 24 07/28/16 14:01 82 24 Resp BP BP BP Pulse Ox 07/29/16 11:39 110/58 07/29/16 08:00 110/58 98 07/29/16 07:50 96 07/29/16 07:49 07/29/16 04:26 107/57 84 07/29/16 01:19 07/29/16 01:10 07/29/16 01:04 97 07/29/16 00:17 98/59 93 07/28/16 22:00 22 95 07/28/16 20:05 07/28/16 19:59 98/59 93 07/28/16 19:58 95 07/28/16 19:56 07/28/16 16:36 96 07/28/16 16:30 106/58 07/28/16 14:12 07/28/16 14:01 - Physical Examination General: No Apparent Distress HEENT: Positive: PERRL Neck: Positive: trachea midline Cardiac: Positive: Reg Rate and Rhythm Lungs: Positive: Decreased Breath Sounds Neuro: Positive: Grossly Intact Extremities: Absent: edema - Labs and Meds CBC 07/29/16 Range/Units 04:30 WBC 4.8 (4.5-11.0) K/mm3 RBC 3.00 L (3.65-5.03) M/mm3 Hgb 9.5 L (11.8-15.2) gm/dl Hct 29.2 L (35.5-45.6) % Plt Count 96 L (140-440) K/mm3 Comprehensive Metabolic Panel 07/29/16 Range/Units 04:30 Sodium 143 (137-145) mmol/L Potassium 4.4 (3.6-5.0) mmol/L Chloride 99.1 (98-107) mmol/L Carbon Dioxide 34 H (22-30) mmol/L BUN 40 H (9-20) mg/dL Creatinine 1.0 (0.8-1.5) mg/dL Glucose 176 H (75-100) mg/dL Calcium 7.9 L (8.4-10.2) mg/dL
[2016-07-29] MEDS ORDERED: D50W (25GM) IV PRN (17:20)
[2016-07-29] MEDS: NOVOLOG SUB-Q SCH (23:58)
[2016-07-30] MEDS: DUONEB 0.5 MG-3 MG/3 ML SOLN IH SCH ×4 (01:13→21:05)
[2016-07-30] MEDS: SYNTHROID PO SCH (06:48)
[2016-07-30] MEDS: NOVOLOG SUB-Q SCH ×4 (09:03→22:40)
[2016-07-30] MEDS: VITAMIN E CAP PO SCH (09:30)
[2016-07-30] MEDS: LEVAQUIN 750MG/150ML 150 ML IV SCH (09:30)
[2016-07-30] MEDS: MUCINEX ER PO SCH ×2 (09:31→22:39)
[2016-07-30] MEDS: HALFPRIN EC PO SCH (09:31)
[2016-07-30] MEDS: K-DUR PO SCH (09:32)
[2016-07-30] MEDS: ELIQUIS PO SCH ×2 (09:32→22:39)
[2016-07-30] MEDS: FLOMAX PO SCH (09:32)
[2016-07-30] MEDS: TENORMIN PO SCH (09:32)
[2016-07-30] MEDS: LASIX PO SCH (09:34)
[2016-07-30] MEDS: ZESTRIL PO SCH (09:34)
[2016-07-30] MEDS: PULMICORT IH SCH ×2 (10:51→21:04)
[2016-07-30] MEDS: BROVANA NEBU IH SCH ×2 (10:51→21:04)
[2016-07-30] MEDS ORDERED: LEVAQUIN PO SCH (11:00)
--- NOTE | 2016-07-30 11:19 | Progress Note ---
Addendum entered and electronically signed by VERO COOK MD 15:34: Continue medical management for COPD exacerbation Follow-up as outpatient with primary typewriter assembler Dr Nava in [place] Original Note: Assessment and Plan Acute respiratory failure COPD exacerbation Hx of CAD with remote 3 vessel CABG Ischemic Cardiomyopathy Echo reports a moderate MR, ejection fraction 15% done 06/2016 fixed inferolateral defect of old [place]. No reversible ischemia by MPI 06/2016 Presence of ACID Hx of paroxysmal atrial tachycardia/flutter on Eliquis for anticoagulation Recommendations: Continue medical therapy for ischemic cardiomyopathy, coronary disease and anticoagulation for paroxysmal atrial tachycardia/flutter. Conservative cardiac management. Subjective Date of service: 07/30/16 Interval history: Patient reports he is feeling better. Objective Vital Signs Temp Pulse Pulse Pulse Pulse Resp Resp 07/30/16 11:14 98.3 F 72 20 07/30/16 09:34 66 07/30/16 09:32 66 07/30/16 08:20 97.7 F 66 20 07/30/16 04:00 98.2 F 69 21 07/30/16 01:21 68 68 16 07/30/16 01:13 65 17 07/29/16 23:00 97.9 F 74 18 07/29/16 20:58 07/29/16 20:00 69 75 18 07/29/16 16:27 98 F 74 20 07/29/16 13:30 90 20 07/29/16 12:00 98.3 F 80 16 07/29/16 11:39 80 Resp BP BP Pulse Ox 07/30/16 11:14 110/62 95 07/30/16 09:34 108/55 07/30/16 09:32 108/55 07/30/16 08:20 108/55 96 07/30/16 04:00 96/53 07/30/16 01:21 16 07/30/16 01:13 07/29/16 23:00 101/65 93 07/29/16 20:58 95 07/29/16 20:00 18 07/29/16 16:27 98/60 07/29/16 13:30 07/29/16 12:00 110/62 07/29/16 11:39 110/58 - Physical Examination General: No Apparent Distress HEENT: Positive: PERRL Neck: Positive: trachea midline Cardiac: Positive: Reg Rate and Rhythm Lungs: Positive: Decreased Breath Sounds, Wheezes Neuro: Positive: Grossly Intact
[2016-07-30] MEDS: VANCOMYCIN VIAL 1,250 MG in NACL 0.9% 250ML 250 ML IV SCH ×2 (12:30→23:20)
--- NOTE | 2016-07-30 16:01 | Progress Note ---
Assessment and Plan 81 y/o male with acute on chronic respiratory failure thought secondary to volume overload and CHF exacerbation, questionable COPD exacerbation. No new recs today, please see below. 1. Would stop Vanc and Levaquin. Patient has been afebrile, no white count, no sputum production and no acute evidence of acute lung disease on CXR 2. Please change to prednisone 60. At discharge would taper as follows 60x3, 40x3, 20x3, 10x3 then stop. 3. Continue supplemental O2 4. Consider discontinuing stewart and allow patient to void in urinal 5. Thank you for the consult, will continue to follow along with you. Subjective Date of service: 07/30/16 Interval history: No acute events. States that he feels better. Confirms that he wears 3-4 liters at home. States that he has not been moving around. Still on Vanc and Levaquin. Objective Vital Signs - 12hr 07/30/16 07/30/16 07/30/16 08:20 09:32 09:34 Temperature 97.7 F Pulse Rate 66 66 Pulse Rate [ 66 Right Radial] Respiratory 20 Rate Blood Pressure 108/55 108/55 Blood Pressure 108/55 [Right Arm] O2 Sat by Pulse 96 Oximetry 07/30/16 07/30/16 10:00 11:14 Temperature 98.3 F Pulse Rate Pulse Rate [ 66 72 Right Radial] Respiratory 22 20 Rate Blood Pressure Blood Pressure 110/62 [Right Arm] O2 Sat by Pulse 96 95 Oximetry Constitutional: no acute distress, alert Eyes: non-icteric ENT: oropharynx moist Neck: supple Ascultation: Bilateral: diminished breath sounds (Prolonged expiratory phase.), rales Percussion: Bilateral: not dull Tactile fremitus: Bilateral: normal Cardiovascular: regular rate and rhythm, other (displaced PMI) Gastrointestinal: normoactive bowel sounds Integumentary: normal Extremities: no cyanosis, no edema Neurologic: normal mental status, non-focal exam, pupils equal and round, CN II- XII normal Psychiatric: mood appropriate CBC and BMP: 07/29/16 04:30 07/29/16 04:30 ABG, PT/INR, D-dimer: ABG POC ABG pH 7.432 (7.35-7.45) 07/28/16 16:47 POC ABG pCO2 54.9 (35-45) H 07/28/16 16:47 POC ABG pO2 91 (80-105) 07/28/16 16:47 POC ABG HCO3 36.6 07/28/16 16:47 POC ABG Total CO2 38 07/28/16 16:47 POC ABG O2 Sat 97 07/28/16 16:47 Abnormal lab findings: Abnormal Labs 07/27/16 07/27/16 07/27/16 06:12 08:38 08:38 RBC 3.39 L Hgb 10.6 L Hct 33.1 L MCV 98 H RDW 17.7 H Plt Count 135 L Seg Neuts % (Manual) 96.0 H Lymphocytes % (Manual) 2.0 L Lymphocytes # (Manual) 0.1 L POC ABG pCO2 Chloride 97.0 L Carbon Dioxide 36 H BUN 25 H Glucose 144 H POC Glucose 147 H Calcium 8.3 L Total Protein 5.7 L Albumin 3.4 L 07/28/16 07/28/16 07/28/16 06:13 12:21 16:40 RBC Hgb Hct MCV RDW Plt Count Seg Neuts % (Manual) Lymphocytes % (Manual) Lymphocytes # (Manual) POC ABG pCO2 Chloride Carbon Dioxide BUN Glucose POC Glucose 137 H 203 H 180 H Calcium Total Protein Albumin 07/28/16 07/28/16 07/29/16 16:47 21:08 04:30 RBC 3.00 L Hgb 9.5 L Hct 29.2 L MCV 97 H RDW 17.9 H Plt Count 96 L Seg Neuts % (Manual) 97.0 H Lymphocytes % (Manual) 2.0 L Lymphocytes # (Manual) 0.1 L POC ABG pCO2 54.9 H Chloride Carbon Dioxide BUN Glucose POC Glucose 218 H Calcium Total Protein Albumin 07/29/16 07/29/16 07/29/16 04:30 06:34 11:49 RBC Hgb Hct MCV RDW Plt Count Seg Neuts % (Manual) Lymphocytes % (Manual) Lymphocytes # (Manual) POC ABG pCO2 Chloride Carbon Dioxide 34 H BUN 40 H Glucose 176 H POC Glucose 169 H 200 H Calcium 7.9 L Total Protein Albumin 07/29/16 07/29/16 07/30/16 15:42 20:59 06:06 RBC Hgb Hct MCV RDW Plt Count Seg Neuts % (Manual) Lymphocytes % (Manual) Lymphocytes # (Manual) POC ABG pCO2 Chloride Carbon Dioxide BUN Glucose POC Glucose 146 H 246 H 170 H Calcium Total Protein Albumin 07/30/16 10:51 RBC Hgb Hct MCV RDW Plt Count Seg Neuts % (Manual) Lymphocytes % (Manual) Lymphocytes # (Manual) POC ABG pCO2 Chloride Carbon Dioxide BUN Glucose POC Glucose 225 H Calcium Total Protein Albumin
[2016-07-31] MEDS: DUONEB 0.5 MG-3 MG/3 ML SOLN IH SCH ×3 (02:19→18:27)
--- NOTE | 2016-07-31 02:58 | Progress Note ---
Assessment and Plan Assessment and plan: Assessment and plan: --Acute on chronic hypoxic hypercapnic respiratory failure due to COPD exacerbation He has not been using BIPAP much. Continue Oxygen.iV antibiotics and supportive care. He feels better, less SOB. Pulm and cardiology following. COPD exacerbation with bronchitis Managed with nebulizers, IV steroids, IV antibiotics. Pulm following Acute on chronic systolic congestive heart failure, ejection fraction 15% Continue current anti-failure medications, cardiology following. Gen weakness. Physical Therapy eval ordered. History of AICD Paroxysmal atrial fibrillation rate controlled, continue Eliquis COPD exacerbation with bronchitis Managed with nebulizers, IV steroids, IV antibiotics. Pulm following hypothyroidism stable on Synthroid. CAD s/p CABG Hypertension well-controlled Continue current antihypertensives and when necessary medications. Dyslipidemia; stable on medications DVT prophylaxis: Patient is on eliquis Full CODE STATUS History Interval history: Feels better, less shortness of breath, Gen weakness Hospitalist Physical - Physical exam Narrative exam: Gen appearance : not in acute distress, ill looking HEENT: Normocephalic atraumatic, Neck: supple, no JVD. Lungs: Decreased BS bilaterally, no crackles no wheezes Heart: S1 and S2 regular, no murmurs no gallop Abdomen: soft, non-tender, non-distended, normal bowel sounds Extremities: no edema, no clubbing or cyanosis Neuro: Awake alert oriented - Constitutional Vitals: Temp Pulse Resp BP Pulse Ox 97.8 F 85 16 108/60 92 07/30/16 23:00 07/31/16 02:24 07/31/16 02:24 07/30/16 23:00 07/30/16 23:00 General appearance: Present: well-nourished Results - Labs CBC & Chem 7: 07/29/16 04:30 07/29/16 04:30 Labs: Laboratory Last Values WBC 4.8 K/mm3 (4.5-11.0) 07/29/16 04:30 RBC 3.00 M/mm3 (3.65-5.03) L 07/29/16 04:30 Hgb 9.5 gm/dl (11.8-15.2) L 07/29/16 04:30 Hct 29.2 % (35.5-45.6) L 07/29/16 04:30 MCV 97 fl (84-94) H 07/29/16 04:30 MCH 32 pg (28-32) 07/29/16 04:30 MCHC 33 % (32-34) 07/29/16 04:30 RDW 17.9 % (13.2-15.2) H 07/29/16 04:30 Plt Count 96 K/mm3 (140-440) L 07/29/16 04:30 Lymph % (Auto) 11.1 % (13.4-35.0) L 07/26/16 05:29 [place] % (Auto) 6.6 % (0.0-7.3) 07/26/16 05:29 Eos % (Auto) 0.8 % (0.0-4.3) 07/26/16 05:29 Baso % (Auto) 0.5 % (0.0-1.8) 07/26/16 05:29 Lymph # 0.6 K/mm3 (1.2-5.4) L 07/26/16 05:29 [place] # 0.4 K/mm3 (0.0-0.8) 07/26/16 05:29 Eos # 0.0 K/mm3 (0.0-0.4) 07/26/16 05:29 Baso # 0.0 K/mm3 (0.0-0.1) 07/26/16 05:29 Add Manual Diff Complete 07/29/16 04:30 Total Counted 100 07/29/16 04:30 Seg Neutrophils % Packing And Final Assembly Supervisor 07/29/16 04:30 Seg Neuts % (Manual) 97.0 % (40.0-70.0) H 07/29/16 04:30 Band Neutrophils % 0 % 07/29/16 04:30 Lymphocytes % (Manual) 2.0 % (13.4-35.0) L 07/29/16 04:30 Reactive Lymphs % (Man) 0 % 07/29/16 04:30 Monocytes % (Manual) 1.0 % (0.0-7.3) 07/29/16 04:30 Eosinophils % (Manual) 0 % (0.0-4.3) 07/29/16 04:30 Basophils % (Manual) 0 % (0.0-1.8) 07/29/16 04:30 Metamyelocytes % 0 % 07/29/16 04:30 Myelocytes % 0 % 07/29/16 04:30 Promyelocytes % 0 % 07/29/16 04:30 Blast Cells % 0 % 07/29/16 04:30 Nucleated RBC % Not Reportable 07/29/16 04:30 Seg Neutrophils # 4.7 K/mm3 (1.8-7.7) 07/26/16 05:29 Seg Neutrophils # Man 4.7 K/mm3 (1.8-7.7) 07/29/16 04:30 Band Neutrophils # 0.0 K/mm3 07/29/16 04:30 Lymphocytes # (Manual) 0.1 K/mm3 (1.2-5.4) L 07/29/16 04:30 Abs React Lymphs (Man) 0.0 K/mm3 07/29/16 04:30 Monocytes # (Manual) 0.0 K/mm3 (0.0-0.8) 07/29/16 04:30 Eosinophils # (Manual) 0.0 K/mm3 (0.0-0.4) 07/29/16 04:30 Basophils # (Manual) 0.0 K/mm3 (0.0-0.1) 07/29/16 04:30 Metamyelocytes # 0.0 K/mm3 07/29/16 04:30 Myelocytes # 0.0 K/mm3 07/29/16 04:30 Promyelocytes # 0.0 K/mm3 07/29/16 04:30 Blast Cells # 0.0 K/mm3 07/29/16 04:30 WBC Morphology Not Reportable 07/29/16 04:30 Hypersegmented Neuts Not Reportable 07/29/16 04:30 Hyposegmented Neuts Not Reportable 07/29/16 04:30 Hypogranular Neuts Not Reportable 07/29/16 04:30 Smudge Cells Not Reportable 07/29/16 04:30 Toxic Granulation Not Reportable 07/29/16 04:30 Toxic Vacuolation Not Reportable 07/29/16 04:30 Dohle Bodies Not Reportable 07/29/16 04:30 Pelger-Huet Anomaly Not Reportable 07/29/16 04:30 Mirna Rods Not Reportable 07/29/16 04:30 Platelet Estimate Appears decreased 07/29/16 04:30 Clumped Platelets Not Reportable 07/29/16 04:30 Plt Clumps, EDTA Not Reportable 07/29/16 04:30 Large Platelets Not Reportable 07/29/16 04:30 Giant Platelets Not Reportable 07/29/16 04:30 Platelet Satelliting Not Reportable 07/29/16 04:30 Plt Morphology Comment Not Reportable 07/29/16 04:30 RBC Morphology Not Reportable 07/29/16 04:30 Dimorphic RBCs Not Reportable 07/29/16 04:30 Polychromasia Not Reportable 07/29/16 04:30 Hypochromasia Not Reportable 07/29/16 04:30 Poikilocytosis Not Reportable 07/29/16 04:30 Anisocytosis 1+ 07/29/16 04:30 Microcytosis Not Reportable 07/29/16 04:30 Macrocytosis Not Reportable 07/29/16 04:30 Spherocytes Not Reportable 07/29/16 04:30 Pappenheimer Bodies Not Reportable 07/29/16 04:30 Sickle Cells Not Reportable 07/29/16 04:30 Target Cells Not Reportable 07/29/16 04:30 Tear Drop Cells Not Reportable 07/29/16 04:30 Ovalocytes Not Reportable 07/29/16 04:30 Helmet Cells Not Reportable 07/29/16 04:30 [place] Bodies Not Reportable 07/29/16 04:30 [place] Rings Not Reportable 07/29/16 04:30 [place] Cells Not Reportable 07/29/16 04:30 Bite Cells Not Reportable 07/29/16 04:30 Crenated Cell Not Reportable 07/29/16 04:30 Elliptocytes Not Reportable 07/29/16 04:30 Acanthocytes (Spur) Not Reportable 07/29/16 04:30 Rouleaux Not Reportable 07/29/16 04:30 Hemoglobin C Crystals Not Reportable 07/29/16 04:30 Schistocytes Not Reportable 07/29/16 04:30 Malaria parasites Not Reportable 07/29/16 04:30 Luc Bodies Not Reportable 07/29/16 04:30 Hem Pathologist Commnt No 07/29/16 04:30 POC ABG pH 7.432 (7.35-7.45) 07/28/16 16:47 POC ABG pCO2 54.9 (35-45) H 07/28/16 16:47 POC ABG pO2 91 (80-105) 07/28/16 16:47 POC ABG HCO3 36.6 07/28/16 16:47 POC ABG Total CO2 38 07/28/16 16:47 POC ABG O2 Sat 97 07/28/16 16:47 POC ABG Base Excess 12 07/28/16 16:47 FiO2 2 % 07/28/16 16:47 Sodium 143 mmol/L (137-145) 07/29/16 04:30 Potassium 4.4 mmol/L (3.6-5.0) 07/29/16 04:30 Chloride 99.1 mmol/L (98-107) 07/29/16 04:30 Carbon Dioxide 34 mmol/L (22-30) H 07/29/16 04:30 Anion Gap 14 mmol/L 07/29/16 04:30 BUN 40 mg/dL (9-20) H 07/29/16 04:30 Creatinine 1.0 mg/dL (0.8-1.5) 07/29/16 04:30 Estimated GFR > 60 ml/min 07/29/16 04:30 BUN/Creatinine Ratio 40.00 % 07/29/16 04:30 Glucose 176 mg/dL (75-100) H 07/29/16 04:30 POC Glucose 203 (70-105) H 07/30/16 20:58 Lactic Acid 1.5 mmol/L (0.7-2.0) 07/26/16 06:47 Calcium 7.9 mg/dL (8.4-10.2) L 07/29/16 04:30 Magnesium 2.3 mg/dL (1.7-2.3) 07/29/16 04:30 Total Bilirubin 0.7 mg/dL (0.1-1.2) 07/27/16 08:38 AST 21 units/L (5-40) 07/27/16 08:38 ALT 20 units/L (7-56) 07/27/16 08:38 Alkaline Phosphatase 45 units/L (35-129) 07/27/16 08:38 Troponin T < 0.010 ng/mL (0.00-0.029) 07/26/16 06:47 NT-Pro-B Natriuret Pep 89833 pg/mL (0-900) H 07/26/16 05:29 Total Protein 5.7 g/dL (6.3-8.2) L 07/27/16 08:38 Albumin 3.4 g/dL (3.9-5) L 07/27/16 08:38 Albumin/Globulin Ratio 1.5 % 07/27/16 08:38 Vancomycin Trough 19.1 ug/mL (5.0-20.0) 07/29/16 12:40
[2016-07-31] MEDS: SYNTHROID PO SCH (07:07)
--- NOTE | 2016-07-31 09:04 | Progress Note ---
Addendum entered and electronically signed by SEAMUS MATTSON MD 07/31/16 14:04 : Medical therapy for ischemic cardiomyopathy, coronary artery disease and paroxysmal atrial tachycardia. Original Note: Assessment and Plan Acute respiratory failure COPD exacerbation Hx of CAD with remote 3 vessel CABG Ischemic Cardiomyopathy Echo reports a moderate MR, ejection fraction 15% done 06/2016 fixed inferolateral defect of old IL. No reversible ischemia by MPI 06/2016 Presence of ACID Hx of paroxysmal atrial tachycardia/flutter on Eliquis for anticoagulation Recommendations: Continue medical therapy for ischemic cardiomyopathy, coronary disease and anticoagulation for paroxysmal atrial tachycardia/flutter. Conservative cardiac management. Follow-up as outpatient with primary resource development manager Dr Nava in [place] once discharged. Subjective Date of service: 07/31/16 Interval history: Patient sitting up in bedside chair. Reports he is feeling better. Objective Vital Signs Temp Pulse Pulse Pulse Pulse Resp Resp 07/31/16 08:23 74 07/31/16 04:00 97.8 F 76 18 07/31/16 02:24 85 16 07/31/16 02:15 88 20 07/30/16 23:00 97.8 F 76 18 07/30/16 22:00 96 H 28 H 07/30/16 21:20 84 18 07/30/16 21:09 07/30/16 21:05 82 18 07/30/16 21:00 82 18 07/30/16 16:43 97.9 F 78 24 07/30/16 11:14 98.3 F 72 20 07/30/16 11:10 72 70 18 07/30/16 10:45 70 66 18 07/30/16 10:00 66 22 07/30/16 09:34 66 07/30/16 09:32 66 Resp BP BP Pulse Ox 07/31/16 08:23 07/31/16 04:00 105/64 92 07/31/16 02:24 07/31/16 02:15 07/30/16 23:00 108/60 92 07/30/16 22:00 07/30/16 21:20 07/30/16 21:09 92 07/30/16 21:05 07/30/16 21:00 92 07/30/16 16:43 97/64 07/30/16 11:14 110/62 95 07/30/16 11:10 20 07/30/16 10:45 18 07/30/16 10:00 96 07/30/16 09:34 108/55 07/30/16 09:32 108/55 - Physical Examination General: No Apparent Distress HEENT: Positive: PERRL Neck: Positive: trachea midline Cardiac: Positive: Reg Rate and Rhythm Lungs: Positive: Decreased Breath Sounds, Other (coarse) Neuro: Positive: Grossly Intact Extremities: Absent: edema
[2016-07-31] MEDS: BROVANA NEBU IH SCH (09:14)
[2016-07-31] MEDS: PULMICORT IH SCH (09:14)
[2016-07-31] MEDS: NOVOLOG SUB-Q SCH ×2 (09:39→13:15)
[2016-07-31] MEDS: ZESTRIL PO SCH (11:33)
[2016-07-31] MEDS: MUCINEX ER PO SCH (11:33)
[2016-07-31] MEDS: HALFPRIN EC PO SCH (11:33)
[2016-07-31] MEDS: LASIX PO SCH (11:38)
[2016-07-31] MEDS: FLOMAX PO SCH (11:39)
[2016-07-31] MEDS: K-DUR PO SCH (11:39)
[2016-07-31] MEDS: TENORMIN PO SCH (11:40)
[2016-07-31] MEDS: VITAMIN E CAP PO SCH (11:41)
[2016-07-31] MEDS: ELIQUIS PO SCH (11:44)
--- NOTE | 2016-07-31 13:50 | Discharge Summary ---
Providers - Providers Date of Admission: 07/26/16 12:26 Date of discharge: 07/31/16 Attending physician: MERE TAY 07/28/16 14:03 Consult to Physician [CONS] Routine Consulting Provider: JOSE GREEN Reason For Exam: acute respiratory failure Place consult to:: pulmonary Notified:: Dr Lay Phone number called:: office Was contact made?: Yes If yes, spoke with:: Dr Moreau Time called:: 16:00 Comment:: Dr. Lowe Spoke with Dr Moreau 07/29/16 12:42 Physical Therapy Evaluation and Treat [CONS] Routine Comment: Reason For Exam: gen weakness Primary care physician: TRANSPORTATION SPECIALIST Hospitalization Condition: Fair Hospital course: Patient is 81-year-old with history of CHF, atrial flutter and COPD. He presented with shortness of breath and leg edema. He was diagnosed with acute on chronic respiratory failure secondary to CHF exacerbation and COPD exacerbation. He was put on Lasix iv, Solu-Medrol iv, DuoNeb and admitted . Cardiology and pulmonary were consulted. cardiology recommended medical management. He improved slowly over the next several days, with less shortness of breath. Patient and family were interested in home hospice, and this was arranged by the telephonic case manager and he was eventually discharged to home hospice on 07/31/16. Total time spent on discharge, 36 minutes Disposition: DC TO HOSPICE (HOME) - Discharge Diagnoses (1) COPD exacerbation Status: Acute (2) Acute on chronic systolic heart failure Status: Acute (3) Acute and chronic respiratory failure Status: Acute Qualifiers: Respiratory failure complication: hypoxia and hypercapnia Qualified Code(s) : J96.21 - Acute and chronic respiratory failure with hypoxia; J96.22 - Acute and chronic respiratory failure with hypercapnia (4) CAD (coronary artery disease) Status: Chronic Qualifiers: Coronary Disease-Associated Artery/Lesion type: C [place] vs. transplanted heart: N Associated angina: A (5) Hypothyroidism Status: Chronic Qualifiers: Hypothyroidism type: H (6) Paroxysmal atrial flutter Status: Chronic (7) Hypothyroidism Status: Chronic Qualifiers: Hypothyroidism type: unspecified Qualified Code(s): E03.9 - Hypothyroidism , unspecified Core Measure Documentation - Palliative Care Palliative Care/ Comfort Measures: Not Applicable - Core Measures Any of the following diagnoses?: heart failure - Heart Failure Discharge Requirements FELICE/ARB for LVSD if EF <40%: Yes Beta marisa at discharge: Yes Exam - Constitutional Vitals: Temp Pulse Resp BP Pulse Ox 97.8 F 85 18 122/71 92 07/31/16 04:00 07/31/16 11:40 07/31/16 04:00 07/31/16 11:40 07/31/16 04:00 Plan Activity: advance as tolerated Diet: low fat, low cholesterol, low salt Additional Instructions: 1. Follow with home hospice. 2. Continue home oxygen at 3l/min Follow up with: PRIMARY CARE, [Primary Care Provider] - 3-5 Days Prescriptions: Prednisone [predniSONE 5 mg (6-Day Pack, 21 Tabs)] 5 mg PO .TAPER #1 tab.ds.pk
[2016-07-31 17:46] VITALS: BP 115/56
== END 2016-07-31 18:20 | disposition hospice, home (50) | DRG 291 ==
LOC: ED 05:11 → CC1 12:26 → 3A 16:02
PROVIDERS: ADMIT Internal Medicine; ATTEND Internal Medicine
PROC: 5A09457 Assistance with Respiratory Ventilation, 24-96 Consecutive Hours, Continuous Positive Airway Pressure (ICD-10-PCS; principal; 2016-07-26)
PROC: 4A033R1 Measurement of Arterial Saturation, Peripheral, Percutaneous Approach (ICD-10-PCS; 2016-07-26)
PROC: 4A033R1 Measurement of Arterial Saturation, Peripheral, Percutaneous Approach (ICD-10-PCS; 2016-07-28)
DX: I11.0 Hypertensive heart disease with heart failure (principal); J18.9 Pneumonia, unspecified organism; J96.22 Acute and chronic respiratory failure with hypercapnia; J96.21 Acute and chronic respiratory failure with hypoxia; J44.1 Chronic obstructive pulmonary disease with (acute) exacerbation; J44.0 Chronic obstructive pulmonary disease with (acute) lower respiratory infection; I50.43 Acute on chronic combined systolic (congestive) and diastolic (congestive) heart failure; M19.90 Unspecified osteoarthritis, unspecified site; J45.909 Unspecified asthma, uncomplicated; E03.9 Hypothyroidism, unspecified; I25.10 Atherosclerotic heart disease of native coronary artery without angina pectoris; E78.5 Hyperlipidemia, unspecified; N40.0 Benign prostatic hyperplasia without lower urinary tract symptoms; I25.5 Ischemic cardiomyopathy; I48.0 Paroxysmal atrial fibrillation; R53.1 Weakness; Z88.8 Allergy status to other drugs, medicaments and biological substances; Z87.01 Personal history of pneumonia (recurrent); Z79.899 Other long term (current) drug therapy; I25.2 Old myocardial infarction; Z87.442 Personal history of urinary calculi; Z95.1 Presence of aortocoronary bypass graft; Z87.891 Personal history of nicotine dependence; Z79.82 Long term (current) use of aspirin; Z95.810 Presence of automatic (implantable) cardiac defibrillator; Z82.49 Family history of ischemic heart disease and other diseases of the circulatory system
CPT/HCPCS: 36415; 36600; 51702; 71010; 80048; 80053; 80202; 82140; 82803; 82962; 83735; 83880; 84484; 85007; 85025; 87040; 93005; 93010; 94640; 94660; 94668; 94760; 96365; 96366; 96368; 96375; A9270-GY; G8978-GP; G8979-GP; J1815; J1956; J2543; J2920; J2930; J3370; J7050